=== PATIENT | male | born 1930 | race Caucasian/White ===

== ENCOUNTER 2016-06-02 01:39 | Inpatient (IN) | payer MEDICARE, OTHER ==
[2016-06-02] VITALS (10 sets, daily range): BP systolic 116–163; BP diastolic 63–76; PULSE 59–93; RESP 16–20; O2SAT 95–98
[~2016-06-02] VITALS: Ht 172.7 cm; Wt 85.4 kg
--- NOTE | 2016-06-02 01:42 | ED.REPORT ---
HPI-Chest Pain 40 and Over Date of Service Jun 02, 2016 ED Provider: Dr. Cramer 85-year-old male history of coronary disease and hypertension presents with accelerated anginal symptoms. He has had steadily increasing need for nitroglycerin over the past few weeks. Tonight as he was getting ready for bed he developed the pain in his chest for which he took nitroglycerin. This resolved the pain. The pain then returned a couple more times and has taken a total of 3 doses of nitroglycerin get him pain-free. EMS was activated and he presents to us completely pain-free at this time. He has a history of coronary artery disease and stents. He also has history of a chronic left bundle branch block. He denies having any ripping or tearing pain. He is currently on Plavix and warfarin as well as other cardiac medications. Nursing Notes Stated Complaint: CHEST PAIN Nursing Notes Reviewed: Yes Allergies: Coded Allergies: Penicillins (Verified Allergy, Unknown, 06/02/16) erythromycin base (Verified Allergy, Unknown, 06/02/16) fluorouracil (Verified Allergy, Unknown, 06/02/16) Scheduled Alfuzosin ER (Alfuzosin ER) 10 Mg Tab.er.24h 10 MG PO DAILY Allopurinol (Allopurinol) 300 Mg Tablet 300 MG PO DAILY Clopidogrel Bisulfate (Plavix) 75 Mg Tablet 37.5 MG PO DAILY Finasteride (Finasteride) 5 Mg Tablet 5 MG PO DAILY Isosorbide Dinitrate (Isordil Titradose) 5 Mg Tablet 10 MG PO BID Lisinopril (Lisinopril) 5 Mg Tablet 5 MG PO DAILY Metoprolol Tartrate (Metoprolol Tartrate) 25 Mg Tablet 25 MG PO BID Multivitamin/Iron/Folic Acid (Daily Vit Formula + Iron Tab) 18 Mg Iron-400 Mcg Tablet 1 EACH PO DAILY Dallas-3 Fatty Acids/Fish Oil ([place] 3 1,000 mg Softgel) 1 Each Capsule 1 EACH PO DAILY Ranitidine (Zantac) 150 Mg Tablet 150 MG PO DAILY Simvastatin (Zocor) 40 Mg Tablet 40 MG PO HS Triamcinolone Acet (Triamcinolone Acetonide Cream) 4 Applic/Gm Cr 1 APPLIC TOP BID Scheduled PRN Acetaminophen (Acetaminophen) 325 Mg Tablet 500 MG PO Q4H PRN PRN For Pain Hydrocodone-Acetaminophen 5-300 mg (Hydrocodone-Acetaminophen 5-300 mg) 1 Each Tablet 1 TABLET PO Q4H PRN PRN For Pain Nitroglycerin (Nitroglycerin) 0.3 Mg Tab.subl 0.4 MG SL PRN For Chest Pain Miscellaneous Medications Warfarin Sodium (Warfarin Sodium) 2.5 Mg Tablet 2.5 MG PO Warfarin Sodium (Warfarin Sodium) 5 Mg Tablet 5 MG PO General Time Seen by MD: 01:41 Chief Complaint Chest pain Hx Obtained From: Patient, EMS Arrived By: Ambulance Sudden in Onset?: Yes Onset Occurred: 1 - 4 hours ago Symptom Duration: Since onset Location: : Chest left: Chest right Quality: Painful Severity: Current: No pain currently Severity: Maximum: Moderate Relieved by: Nitroglycerin at home x 1, Nitroglycerin at home x 2, Nitroglycerin at home x 3 Past Medical History Past Medical History CAD Hypertension Past Surgical History CABG Total left knee Smoking History Unknown if Ever Smoker Ambulatory Status Independent Review of Systems Constitutional: Denies: Chills, Fever Respiratory: Denies: Non-productive cough, Shortness of breath Cardiovascular: Reports: Chest pain, Denies: Palpitations, Syncope GI: Denies: Abdominal pain, Diarrhea, Nausea, Vomiting Skin: Denies Bruising, Denies Itching, Denies Rash Complete sys rev & neg: except as marked. Physical Exam Initial Vital Signs Vital Signs (First) Date Time Temp Pulse Resp B/P Pulse Ox O2 Delivery O2 Flow Rate FiO2 06/02/16 01:58 36.7 93 18 141/74 95 Room Air Initial VS: Reviewed Head / Eyes: Atraumatic, Normocephalic, PERRL ENT: Mucous membranes moist, Conjunctiva normal, No scleral icterus Neck: Supple, Full range of motion Extremities: Vascular intact, Neuro intact, No swelling, No tenderness Skin: Warm, Dry, No cyanosis Neurologic: Alert, Oriented, Nonfocal Psychiatric: Mood/affect normal, Behavior normal, Normal thought content General/Constitutional: Awake, Alert, No acute distress, Well appearing, Cooperative, Not toxic appearing Respiratory / Chest: Atraumatic, Breath sounds NL, Breath sounds = bilat, No respiratory distress, No rales, No rhonchi, No wheezing, No retractions, No stridor, No chest tenderness, No chest wall deformity, No crepitus Cardiovascular: Heart rate NL, Regular rhythm, Heart sounds NL, No gallop, No murmurs, No rubs, Cap refill not delayed, Peripheral circulation NL Abdomen: Atraumatic, Soft, Non-tender, No guarding, No rebound, No distention, No palpable mass Interpretation & Diagnostics Lab Results Interpretation Result Diagram: 06/02/16 0900 06/02/16 0205 Test 06/02/16 02:05 Sodium Level 141mEq/L (134-144) Potassium Level 4.8mEq/L (3.5-5.2) Chloride Level 106mEq/L (97-108) Carbon Dioxide Level 18mmol/L (18-29) Blood Urea Nitrogen 38mg/dL (8-27) Creatinine 1.73mg/dL (0.76-1.27) Estimat Glomerular Filtration Rate 40mL/min (>59) Glucose Level 157mg/dL (60-99) Calcium Level 8.8mg/dL (8.5-10.1) Total Bilirubin 0.2mg/dL (0.0-1.2) Aspartate Amino Transf (AST/SGOT) 22U/L (0-50) Alanine Aminotransferase (ALT/SGPT) 10U/L (0-44) Alkaline Phosphatase 51U/L (25-160) Total Protein 6.8g/dL (6.4-8.4) Albumin 3.6g/dL (3.4-5.0) Hold Thomas Top Tube Received (Received) ECG Interpretation ECG Interpretation: Sinus rhythm rate 92 APCs LBBB Time: 02:01 Interpreted by: ED physician Normal ECG Interpretation: No acute ischemic changes, No change from prior ECGs X-Ray Chest Interpretation View: Portable, 1 view Interpretation / Wet Read by: Wet read ED physician NL X-Ray Chest Findings: No infiltrate, No acute disease Re-Eval/Medical Decision Med Decision/Clinical Course 85-year-old with coronary disease presents with non-STEMI. His anginal symptoms been stuttering over the past week or so. He presented pain-free. EKG shows a left bundle which is known to be chronic. Certainly no voltage criteria for ST elevation PA. His first troponin is elevated. He will be treated with aspirin and nitrates and beta chari. He is already on warfarin so we withheld heparin. Admit to PCU. Time of Eval: 02:58 Re-Evaluation/Progress Note: Pt rechecked. Informed pt of need for admission for NSTEMI. Pt understands and agrees with plan for admission. All questions addressed. Counseled Regarding: Diagnosis, Lab results, Need for admission Discharge & Departure Primary Impression: NSTEMI (non-ST elevated myocardial infarction) Additional Impression: Renal insufficiency Disposition: ADMITTED TO HOSPITAL Discharge Condition All VS Reviewed: Yes Condition: Stable Referrals: Bayron Kelly MD (PCP) Scribe Attestation Portions of this note were transcribed by Hugh Hawkins. Dr. Bela Hernandez personally performed the history, physical exam and medical decision-making; I reviewed and confirmed the accuracy of the information in the transcribed note. Signed by Billy Phelan, 06/02/16199 copies to: Bayron Kelly MD, Todd P DO Jun 02, 2016 01:42 HUGH HAWKINS Jun 02, 2016 02:01 Primary Impression: NSTEMI (non-ST elevated myocardial infarction) Additional Impression: Renal insufficiency Disposition: ADMITTED TO HOSPITAL Discharge Condition All VS Reviewed: Yes Condition: Stable Referrals: Bayron Kelly MD (PCP) Scribe Attestation Portions of this note were transcribed by Hugh Hawkins. Dr. Bela Hernandez personally performed the history, physical exam and medical decision-making; I reviewed and confirmed the accuracy of the information in the transcribed note. Signed by Billy Phelan, 06/02/16199 copies to: Bayron Kelly MD, Todd P DO Jun 02, 2016 01:42 HUGH HAWKINS Jun 02, 2016 02:01
[2016-06-02] MEDS ORDERED: MeTOProlol 1 mg/mL 5 mL Inj IVPUSH SCH (02:00)
[2016-06-02] MEDS ORDERED: Nitroglycerin 2% 1 Gm Ointment TOPICAL ONE (02:00)
[2016-06-02 02:12] LABS: BASOPHILS % (AUTO) 0.2 % (0-3); EOSINOPHILS % (AUTO) 0.2 % (0-5); Mean Corpuscular Hemoglobin 31.4 pg (27.0-35.0); Mean Corpuscular Volume 98.5 fL (81-100); NEUTROPHILS % (AUTO) 80.4 % (40-74); Platelet Count 148 bil/L (150-400)
[2016-06-02 02:50] LABS: Magnesium 1.7 mg/dL (1.6-2.6); TROPONIN T 0.037 ug/L (0.0-0.011)
[2016-06-02 03:05] LABS: INR 2.05 ratio
[2016-06-02] MEDS ORDERED: Polyethylene Glycol (PEG) 17 Gm Powder PO PRN (04:45)
[2016-06-02] MEDS ORDERED: Senna-Docusate 8.6-50 mg Tablet PO PRN (04:45)
[2016-06-02] MEDS ORDERED: Alum-Mag Hydrox-Simeth 30 mL Suspension PO PRN (04:45)
[2016-06-02] MEDS ORDERED: Ondansetron 2 mg/mL 2 mL Inj IVPUSH PRN (04:45)
--- NOTE | 2016-06-02 05:08 | PCM.HPMED ---
Subjective Date of Service Jun 02, 2016 Primary Provider: Admitting Physician: Gemma Lyn DO Primary Care Physician: Bayron Kelly MD Attending Physician: Gemma Lyn DO Admit Status: From the Emergency Department, [facility] Telemetry Chief Complaint: Chest pain History of Present Illness: The patient is an 85-year-old man with significant history of coronary artery disease and hypertension who presents to the ED via EMS with accelerated anginal symptoms onset prior to arrival. He has had steadily increasing need for nitroglycerin over the past few weeks, but the chest pain typically resolved after one nitro. Patient claims that the chest pain always occurs before bed time and has the same characteristic of "like a heavy weight on my chest." Tonight as he was getting ready for bed he developed a sharp substernal pain for which he took a nitroglycerin. This resolved the pain. However, the chest pain then returned a couple more times and has taken a total of 3 doses of nitroglycerin. EMS was activated and by the time he arrived to the ED, he was completely pain-free. The patient denies any radiation of the chest pain, or any other associated symptoms, including SOB, palpitations, headache, nausea , vomiting, abdominal pain, cough, fever, or chills. Patient had a CABG in 1988 then 5 subsequent stent placements. The last episode of significant chest pain was in 01/2016, when he went to [facility] and was observed for 2 days. No angiography or stent placement at that time. After the hospital stay, he subsequently underwent a chemical stress test that was normal. Patient also has history of a chronic left bundle branch block. He denies history of afib or CHF. He does not recall having a Echo done in the past. He is currently on Plavix and warfarin as well as other cardiac medications. In the ED, patient vital signs were normal. Labs were significant for elevated Trop of 0/037 and renal function with BUN38, Cr 1.73. Therapeutic INR 2.05. CXR was normal. EKG revealed sinus rhythm at rate 92 and LBBB. There is no change from prior EKGs. Patient is admitted for NSTEMI. Review of Systems: A comprehensive review of systems was conducted with the patient and found to be negative except as above in the History of Present Illness. Allergies Coded Allergies: Penicillins (Verified Allergy, Unknown, 06/02/16) erythromycin base (Verified Allergy, Unknown, 06/02/16) fluorouracil (Verified Allergy, Unknown, 06/02/16) Home Medications To be reviewed by nursing. PMH CAD Hypertension Hyperlipidemia Surgical History CABG Total left knee Cholecystectomy Back surgery Family History Patient denied family history of heart disease. Both of his parents at old age. Social History Hx Alcohol Use: No (occasionally drinks a glass of wine) Hx Substance Use: No Smoking Status: Former Smoker (quit smoking in 1967) Living Arrangement: with Family Additional Information Patient is independent at baseline. PCP is Dr. Bayron Kelly and paid search marketing analyst is Dr. Jordan Roldan. Exam Vital Signs Vital Sign - Last Date Time Temp Pulse Resp B/P Pulse Ox O2 Delivery O2 Flow Rate FiO2 06/02/16 04:34 36.6 78 18 133/76 95 Room Air Exam General: No acute distress, well-developed, well-nourished, appropriately interactive HEENT: Normocephalic, atraumatic. External ears without defect. Pupils equal, round, and reactive to light and accommodation. Anicteric sclerae, moist conjunctivae, and no lid lag. Oropharynx free of erythema and cobble stoning with moist mucosa. Neck: Supple with full range of motion. No jugular venous distension. No lymphadenopathy or thyromegaly. Cardiovascular: Regular rate and rhythm with no murmurs, rubs, or gallops appreciated Pulmonary: Clear to auscultation bilaterally with no crackles, wheezes, or rhonchi. Normal respiratory effort with no use of accessory muscles. Abdomen: Bowel tones present. Soft, nontender, nondistended. No hepatosplenomegaly or masses appreciated. Extremities: No clubbing, cyanosis, edema, or lymphadenopathy appreciated. Skin: Normal temperature, turgor, and texture; no rash, ulcers, or subcutaneous nodules appreciated. Neurological: Cranial nerves grossly intact. Normal muscle strength, tone, and bulk. Reflexes, coordination, and sensory function within normal limits. No known gait impairment. Lymphatic: no cervical or supraclavicular lymphadenopathy Psychiatric: Normal mood and affect. Alert and oriented to person, place, and time. Lab and Diagnostics Result Diagram: 06/02/1620406/02/16 020 X-Rays, CTs and MRIs No acute process. Radiology read pending. 12-lead ECG Sinus rhythm rate 92 APCs LBBB Assessment & Plan 85-year-old man with significant history of coronary artery disease and hypertension who presents to the ED via EMS with accelerated anginal symptoms onset prior to arrival and is admitted for NSTEMI. 1. NSTEMI, present on admission, active. - EKG revealed normal sinus rhythm with LBBB, which is old. - Elevated troponin in the setting of chronic kidney disease. - However, in light of the patient's significant cardiac history and clinical presentation, he likely had a NSTEMI. GRACE risk score of 5. - Continue outpatient dual antiplatelet therapy with ASA 81mg and Plavix. - INR therapeutic. Will continue Warfarin dosing per pharmacy and monitor INR daily. - Continue statin. - He received nitro paste and Metoprolol in the ED. Will need to review his medication list and will make sure that he is on beta chari and ACEi. - No prior Echo. Will order Echocardiogram in the morning. If abnormal or if patient becomes symptomatic again, will consider angiography. - Trend Trop and CK-MB. Check Lipid panel. HgbA1c pending - Nitro, Morphine, and O2 PRN - Monitor Telemetry. - Cardiology consult, am team to contact, recs appreciated 2. Chronic kidney disease, stable. - Elevated renal function unchanged compared to labs in 2013. - Continue to monitor BMP daily. 3. Chronic normocytic anemia, stable. - H/H similar to labs in 2013. - Continue to monitor CBC. 4. Hypertension, chronic, stable. - Resume home medication after med rec. 5. Hyperlipidemia, chronic, presume stable. - Check lipid panel. - Continue statin MED REC: need to be done by the day team. CODE STATUS: FULL CODE per the patient and his family. Patient is admitted under inpatient status with expected length of stay greater than 2 midnights due to severity of presenting symptoms, risk of adverse event, and complexity of treatment plan. Pain Evaluation: Adequate Pain Control GI Prophylaxis: H2 chari VTE Prophylaxis: Theraputic Anticoag with Warfarin Resuscitation Status: CPR: Attempt Resuscitation Attending Statement The patient was seen and examined together with house staff on 06/02/2016 and I agree with the history, exam and plan as outlined in the note above. copies to: Bayron Kelly MD; Jordan Roldan MD, Ngochanh H DO Jun 02, 2016 05:08 Gemma Lyn DO Jun 02, 2016 06:59
--- NOTE | 2016-06-02 06:35 | DRSVH ---
PROCEDURE: X-RAY CHEST ONE VIEW, PORTABLE ([id number]) INDICATIONS: 85-year-old male with chest pain. TECHNIQUE: One view of the chest was acquired. COMPARISON: [facility], CHEST 2 VIEW, 03/05/2016, 14:12. [facility], CHEST 1 VIEW, 11/21/2015, 10:02. [facility], CHEST 1 VIEW, 12/18/2013, 5:27. FINDINGS: Surgical changes and devices: Patient is status post coronary artery bypass grafting. Lungs and pleura: No pleural effusions or pneumothorax. Lungs are clear. Mediastinum: Mediastinal contours appear normal. Heart size is normal. There is aortic atheroscler osis. Bones and chest wall: No suspicious bony lesions. Overlying soft tissues appear unremarkable. IMPRESSION: No acute cardiopulmonary disease. Dictated by: Anthony Cerda M.D. on 06/02/2016 at 6:34 Approved by: Anthnoy Cerda M.D. on 06/02/2016 at 6:34
--- NOTE | 2016-06-02 07:07 | NUR ---
Admission Pt arrived via gurney with Hugh Fontenot RN. Pt able to ambulate to the bathroom and was steady on his feet. Denies chest pain and shortness of breath. Oriented to room, call light, television, bed controls, and lights. SCDs in place and wearing non skid socks for safety. MP 30 for cardiac monitoring SR HR [address] monitor[address] care ongoing.
[2016-06-02] MEDS: Sodium Chloride LOK Flush 10 mL Syringe IVFLUSH SCH ×2 (09:00→16:22)
[2016-06-02 09:17] LABS: BASOPHILS % (AUTO) 0.1 % (0-3); EOSINOPHILS % (AUTO) 0 % (0-5); MONOCYTES % (AUTO) 5.3 % (4-12); Mean Corpuscular Hemoglobin 31.3 pg (27.0-35.0); Mean Corpuscular Volume 98.5 fL (81-100); NEUTROPHILS % (AUTO) 79.3 % (40-74); Platelet Count 143 bil/L (150-400)
[2016-06-02 09:34] LABS: INR 2.03 ratio
[2016-06-02] MEDS ORDERED: [UNRECOGNIZED DRUG - CODE] PO (10:09)
[2016-06-02] MEDS ORDERED: LISI-571 PO (10:25)
[2016-06-02] MEDS ORDERED: ISOS5TAB17 PO (10:25)
[2016-06-02] MEDS ORDERED: RANI150T11 PO (10:25)
[2016-06-02] MEDS ORDERED: OMEG1CAP56 PO (10:25)
[2016-06-02] MEDS ORDERED: FINA5TAB9 PO (10:25)
[2016-06-02] MEDS ORDERED: ALFU10TA11 PO (10:25)
[2016-06-02] MEDS ORDERED: CLOP75TA3 PO (10:25)
[2016-06-02] MEDS ORDERED: WARF2.5T82 PO (10:25)
[2016-06-02] MEDS ORDERED: ACET325T51 PO (10:25)
[2016-06-02] MEDS ORDERED: METO25TA6 PO (10:25)
[2016-06-02] MEDS ORDERED: TR5C15 TOP (10:25)
[2016-06-02] MEDS ORDERED: WARF5TAB7 PO (10:25)
[2016-06-02] MEDS ORDERED: ALLO300T2 PO (10:25)
[2016-06-02] MEDS ORDERED: SIMV40TA2 PO (10:25)
[2016-06-02] MEDS ORDERED: HYDR-3090 PO (10:25)
[2016-06-02] MEDS ORDERED: NITR0.3T6 SL (10:25)
[2016-06-02 10:26] LABS: Magnesium 1.9 mg/dL (1.6-2.6)
[2016-06-02 10:32] LABS: TROPONIN T 0.073 ug/L (0.0-0.011)
[2016-06-02] MEDS ORDERED: Alfuzosin 10 mg ER24 Tablet PO SCH (11:15)
[2016-06-02] MEDS ORDERED: HYDROcodone-APAP 5-325 mg Tablet PO PRN (11:20)
[2016-06-02 12:57] LABS: TROPONIN T 0.067 ug/L (0.0-0.011)
[2016-06-02] MEDS: Multivit-Miner-Folic Acid-Iron Tablet PO SCH (13:07)
--- NOTE | 2016-06-02 14:57 | DRSVH ---
[facility] [address] [place] [address] Echocardiogram Report Name: SAE COUCH Study Date: 06/02/2016Height: 68 in Hospital Exam Location: [facility] Weight: 185 lb Gender: Male BSA: 2.0 m2 : 1930 Age: 85 yrs BP: 137/66 mmHg Reason For Study: CHEST PAIN Ordering Physician: HOSPITALIST [facility] Performed By: Hugo Costello Referring Physician: Dr. Bayron Kelly Interpretation Summary 1. Normal left ventricular size with mildly increased wall thickness and normal systolic function with an estimated EF of 55% 2. Normal right ventricular size and systolic function. 3. Evidence for moderate aortic stenosis with trace insufficiency. 4. Moderate mitral regurgitation into a dilated left atrium Procedure: A two-dimensional transthoracic echocardiogram with color flow and Doppler was performed. The study quality was technically adequate. The patient was in normal sinus rhythm during the exam. Left Ventricle: The left ventricle is normal in size. Left ventricular wall thickness is mildly increased. Trabeculae near apex are visualized. No thrombus is observed. Left ventricular ejection fraction is estimated to be 55%. Septal motion is consistent with conduction abnormality. There is left ventricular diastolic dysfunction. Right Ventricle: The right ventricle is normal in size and function. Atria: The left atrium is severely dilated. Right atrial size is normal. The interatrial septum is intact with no evidence for an atrial septal defect. Mitral Valve: There is mild mitral annular calcification. The mitral valve leaflets are slightly calcified. There is moderate mitral regurgitation. Aortic Valve: The aortic valve is trileaflet. The aortic valve is moderately calcified. The peak aortic velocity is 3.04 m/sec. The aortic valve mean gradient is 23.7 mmHg. The calculated aortic valve area is 1.2 cm2. There is moderate aortic stenosis. There is trace aortic regurgitation. Tricuspid Valve: The tricuspid valve leaflets are thin and pliable. There is trace tricuspid regurgitation. The right ventricular systolic pressure is estimated at 33 mmHg assuming a right atrial pressure of 3 mm Hg. Pulmonic Valve: The pulmonic valve is normal in structure and function. There is trace pulmonic regurgitation. Great Vessels: The aortic root is normal size. The ascending aorta is mildly enlarged. The ascending aorta measures 3.9 cm. The pulmonary artery is normal size. The IVC is of normal diameter and collapses greater than 50% with a sniff. This suggests a low right atrial pressure of 3 mm Hg. Pericardium/ Pleura There is no pericardial effusion. There is no pleural effusion. MMode/2D Measurements & Calculations LVIDd: 5.0 cmLA dimension: 4.2 cm RA long axis: 4.7 cm LVOT diam: 2.3 cm LVIDs: 3.4 cm Ao root diam FS: 31.4 % LA A2 area: 30.2 cm RA area: 17.2 cm EPSS: 0.53 cmLA A4 area: 20.7 cm RA vol: 53.1 ml Aortic Jxn: 2.8 cm IVSd: 1.3 cm LA length (vol) RA : 26.9 ml/m2 asc Aorta Diam LVPWd: 1.1 cm LA vol: 97.1 ml Ao Arch Diam (Prox LA vol index Trans): 2.8 cm IVC diam: 2.0 cm EDV(MOD-sp2) LV liz. diameter/BSA LV sys. diameter/BSA (cm/m^2): 2.5 (cm/m^2): 1.7 Doppler Measurements & Calculations Ao V2 max MV E max bret MV E/A: 0.80 TR max bret : 304.0 cm/sec : 97.7 cm/sec Med Peak E' Bret : 273.6 cm/sec Ao max PG MV A max bret TR max PG : 37.0 mmHg : 121.7 cm/sec E/E' med: 31.6 : 29.9 mmHg Ao mean PG Pulm A Revs Dur PA V2 max : 23.7 mmHg MVA(VTI): 3.2 cm2 : 112.4 cm/sec LVOT Max Bret MV A dur: 0.14 sec PA mean PG : 98.9 cm/sec PA Accel Time ANGELES(I,D): 1.2 cm : 0.08 sec sev ratio MV V2 mean Ao V2 mean LV V1 max PG MR PISA radius : 79.1 cm/sec : 237.2 cm/sec MV mean PG Ao V2 VTI: 71.9 cm LV V1 VTI: 22.0 cm ANGELES(V,D): 1.3 cm2 MV V2 VTI MV dec time : 0.20 sec PA V2 mean ANGELES indexed to BSA Pulm A Revs Dur - MV : 80.0 cm/sec (cm^2/m^2): 0.62 A Dur: -0.06 msec PA pr(Accel) : 41.6 mmHg Reading Physician:02:57 PM
--- NOTE | 2016-06-02 15:26 | NUR ---
Social Work-initial assessment: Data & Assessment: See initial assessment. EMR Reviewed. Pt is a 85 y/o male who was admitted on 06/02/16 for non STEMI per H&P. Pt's insurance is [employer] and PCP is Bayron Kelly MD. Pt's readmission score is 1- no risk. SW met with pt to discuss discharge planning, SW role explained and initial assessment complete. Pt is alert and oriented x3. Pt resides at home with family in a single level home with three steps to enter where pt remains independent with basic ADLs. Pt does drive. Pt has no HH or SNF history. Pt has completed DPOA/ advanced directive and states that his , Hortencia Parisi [phone], is his DPOA. Patient has no discharge needs identified at this time. Pt's family to provide transport home at discharge. SW provided phone number and plan on white board in room. SW will continue to follow. Plan: Anticipated discharge home via POV when medically ready. No discharge needs identified at this time. SW to continue to follow if any needs arise. Kasandra Hernadez LMSW, JB Addendum: 06/02/16 at 1537 by KASANDRA HERNADEZ Amended: Links added.
[2016-06-02 18:05] LABS: APPEARANCE,URINE CLEAR (CLEAR,HAZY); COLOR,URINE YELLOW (YELLOW); OCCULT BLOOD,URINE TRACE (NEGATIVE); UROBILINOGEN,URINE NORMAL (NORMAL)
[2016-06-03] VITALS (16 sets, daily range): BP systolic 113–176; BP diastolic 44–105; PULSE 51–96; RESP 15–20; O2SAT 95–98
[2016-06-03] MEDS: Sodium Chloride LOK Flush 10 mL Syringe IVFLUSH SCH ×4 (00:14→23:47)
--- NOTE | 2016-06-03 04:19 | NUR ---
Cardiac: Telemetry sinus rhythm, IVCD with PAC's. Denies chest pain. VSS. No overt signs or symptoms of distress. pt. resting quietly in room for large majority of shift. Uneventful night.
[2016-06-03 08:56] LABS: INR 1.87 ratio
[2016-06-03] MEDS: Multivit-Miner-Folic Acid-Iron Tablet PO SCH (09:10)
--- NOTE | 2016-06-03 10:45 | PCM.PNMED ---
Subjective Date of Service Jun 03, 2016 Subjective No chest pain since admit. No nauseam diaphoresis or dyspnea. No orthopnea or edema. Exam Vital Signs Vital Sign - Last Date Time Temp Pulse Resp B/P Pulse Ox O2 Delivery O2 Flow Rate FiO2 06/03/16 08:32 65 06/03/16 07:53 36.5 18 126/44 96 Room Air Intake and Output 06/02/16 06/02/16 06/03/16 Cumulative From/Thru 15:00 23:00 07:00 06/02/16 01:58 - 06/03/16 06:42 Intake Total 1280 ml 200 ml 1480 ml Output Total 1025 ml 1025 ml Balance 255 ml 200 ml 455 ml Intake Oral 1280 ml 200 ml 1480 ml Output Urine Total 1025 ml 1025 ml # Voids 3 3 # Bowel Movements 1 1 Exam Alert and oriented, fluent speech Anicteric sclera Lungs clear with normal effort heart regular without murmur Abdomen soft and ND No edema. IVs and Medications Medications Reviewed: Medications were reviewed in detail Lab and Diagnostics Result Diagram: 06/02/16 0900 06/02/16 0205 X-Rays, CTs and MRIs No acute process. Radiology read pending. 12-lead ECG Sinus rhythm rate 92 APCs LBBB Assessment & Plan 85-year-old man with significant history of coronary artery disease and hypertension who presents to the ED via EMS with accelerated anginal symptoms onset prior to arrival and is admitted for NSTEMI. 1. NSTEMI, present on admission, active. - EKG revealed normal sinus rhythm with LBBB, which is old. - Elevated troponin in the setting of chronic kidney disease. - However, in light of the patient's significant cardiac history and clinical presentation, he likely had a NSTEMI. GRACE risk score of 5. - Continue outpatient dual antiplatelet therapy with ASA 81mg and Plavix. - INR therapeutic. Will continue Warfarin dosing per pharmacy and monitor INR daily. - Continue statin. - He received nitro paste and Metoprolol in the ED. Will need to review his medication list and will make sure that he is on beta chari and ACEi. - No prior Echo. Will order Echocardiogram in the morning. If abnormal or if patient becomes symptomatic again, will consider angiography. - Trend Trop and CK-MB. Check Lipid panel. HgbA1c pending - Nitro, Morphine, and O2 PRN - Monitor Telemetry. - Cardiology consulted, old records from [facility] requested. Will probably obtain a stress test. 2. Chronic kidney disease Stage 3, stable. - Elevated renal function unchanged compared to labs in 2013. - Continue to monitor BMP daily. 3. Chronic normocytic anemia, stable. - H/H similar to labs in 2013. - Continue to monitor CBC. 4. Hypertension, chronic, stable. - Resume home medication after med rec. 5. Hyperlipidemia, chronic, presume stable. - Check lipid panel. - Continue statin MED REC: need to be done by the day team. CODE STATUS: FULL CODE per the patient and his family. Patient is admitted under inpatient status with expected length of stay greater than 2 midnights due to severity of presenting symptoms, risk of adverse event, and complexity of treatment plan. Pain Evaluation: Adequate Pain Control GI Prophylaxis: H2 chari VTE Prophylaxis: Theraputic Anticoag with Warfarin VTE Mechanical Devices: Intermittant Pneumatic CD Resuscitation Status: CPR: Attempt Resuscitation Time spent 30 min Stephon Lima MD Jun 03, 2016 10:45
--- NOTE | 2016-06-03 14:10 | PCM.PHAPRO ---
Progress Date of Service: Jun 03, 2016 Warfarin Home Dose: 5mg Mo,,Th,Sa 2.5mg AOD Anticoagulation Trends: Date -Jun 03-Jun INR 2.05 1.87 INR change -0.18 Warf Dose 5MG 5MG GOAL INR: 2-3 Summary: Patient is slightly subtherapeutic today at 1.87 , give 5mg today. Pharmacy will continue to follow daily. Thank you for consulting pharmacy in the care of this patient. Bayron Epstein Jun 03, 2016 14:10
--- NOTE | 2016-06-03 16:42 | CONS ---
[address] [address] CONSULTATION REPORT PATIENT: SAE COUCH : 1930 MR#: [id number] ADMIT: 06/02/2016 JOB ID: [id number] DATE OF SERVICE: 06/03/2016 CHIEF COMPLAINT: I was asked by the hospital team to consult on this patient given coronary disease and episode of chest pain and elevated troponins. HISTORY OF PRESENT ILLNESS: The patient is an 85-year-old man with past medical history significant for coronary disease with a history of bypass surgery in 1988. He said he has had stent placement subsequent to that, most recent about two years ago. He is followed by Dr. Jordan Roldan [facility], who has an office in [place], and at [facility]. The patient says he was also admitted in January 2016, when he went to [facility] and he was observed for two days. He had no angiography, no stent placement. Subsequent to that, he had a stress test which I believe was performed at Dr. Jordan Roldan's office that was normal. In general, he says he was recently started on a new medication which I presume is isosorbide. He has been using on average one nitro at least once a week, but with this episode of chest discomfort, he ended up using three. He said the pain was mid sternal, pressure-like, relieved with three nitros. Since she has been here, he has not had any more episodes of chest discomfort. 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 The chest discomfort that he had that brought him here occurred at rest. He cannot find if it got worse with exertion, deep inspiration. It was not associated with increased shortness of breath, diaphoresis, nausea, or vomiting. He does get up and walk around, even at the hospital now and he is not having any chest pressure, chest tightness, or shortness of breath. He denies orthopnea, PND, lower extremity edema, presyncope, syncope. PAST MEDICAL HISTORY/PROBLEM LIST: 1. History of coronary disease. 2. History of hypertension, hyperlipidemia. CURRENT MEDICATIONS: Include: 1. Isosorbide dinitrate 10 mg b.i.d. 2. Lisinopril 5 daily. 3. Plavix 37.5 daily. 4. Metoprolol tartrate 25 b.i.d. 5. Allopurinol. 6. Finasteride. 7. Tamsulosin. 8. Lipitor 20 q.h.s. 9. Aspirin 81 mg a day. 10. He is also on warfarin. ALLERGIES: 1. PENICILLIN. 2. ERYTHROMYCIN. 3. FLUOROURACIL. SOCIAL HISTORY: Former tobacco. No significant alcohol. FAMILY HISTORY: No early coronary disease. REVIEW OF SYSTEMS: Overall health: No fevers, chills, night sweats, or weight loss. GI: no problems with ulcers or blood in his stool. : No dysuria, no hematuria. His creatinine is somewhat up. This may be a chronic problem. Endocrine: No heat or cold intolerance. Musculoskeletal: Has chronic ankle pain, no worsening. Heme: No easy bruising or bleeding. Neuro: No chronic headaches. Derm: No rashes or skin breakdown. He had a recent removal of a skin cancer in the right hassan area. Pulmonary: No history of lung disease. No increased shortness of breath. ENT: No sore throat, difficulty swallowing. Ophtho: No acute vision changes. Psych: No acute issues. PHYSICAL EXAMINATION: Blood pressure 126/44, heart rate 57, sats are 96% on room air. General: In no acute distress. Speaking in full sentences without apparent shortness of breath. Head and neck exam: Normocephalic, atraumatic. Neck: I do not appreciate obvious JV distention. Carotids without obvious bruits appreciated. Heart exam is regular rate and rhythm with systolic murmur appreciated in the sternal border. Lungs sound clear to auscultation. Abdomen: Soft, nondistended. Back: No CVA tenderness to palpation. Extremities: Warm, 1 to 2+ PT pulses appreciated. His right hassan area has a bandage of his prior cancer excision site. Looks clean, dry and intact. Gait not tested. Psych: Appropriate mood and affect. ENT: Mucous membranes moist. No erythema. Ophtho: Vision grossly intact. EKG shows left bundle branch block with occasional PAC. LABORATORIES: Show white count 7.4, H and H 10.2, 32.1 platelets 143,000. Is stable. Troponins have trended upward, now at 0.110 from 0.073 and 0.067. Sodium 141, potassium 4.8, chloride and bicarb 106 and 18, respectively. BUN and creatinine 38 and 1.73. HDL cholesterol 46, LDL 82.2. An echocardiogram performed yesterday showed overall preserved LV systolic function. In one view, the distal posterolateral wall appears mildly hypokinetic, although I cannot see this in the short axis views. A previous echo described possible inferior or inferolateral hypokinesis as well. IMPRESSION: The patient came in with an episode of chest discomfort which sounds like typical angina relieved with three nitroglycerins. Now he has none at this time. He has been getting up and walking to the restroom without chest pain or chest pressure or increased shortness of breath. The troponins are suggestive of a non-STEMI. Unfortunately, I do not have any of his records to see which grafts are patent with where stents have been placed in this gentleman. We tried to get a stress test on him today which was Lexiscan. However, this was not done because he is now on isosorbide. I explained to him that a stress test might be helpful to risk stratify and determine if we need to do angiography. I also explained to him that because his creatinine is somewhat elevated, this would be a concern to do angiography without having previous information about bypasses and stents. 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 55 minutes was spent reviewing the patient's records and echo, speaking with an examining the patient and communicating with the hospital team SAAD
--- NOTE | 2016-06-03 19:44 | NUR ---
Chest pain at about 1900 pt report 9/10 chest pain, o2 applied for comfort. ra sat @ 95. 2L o2 applied sating mid 90s throughout chest pain. EKG obtained. Nitro SL given, with progressive lightening of chest pain. second nitro given with continued relieve of pain. Pt stated chest resolved to about 0.5-1/10 about 5 minutes after 2nd nitro. Pt noted heaviness of bilateral arms. Trim Die Maker paged by PAUL RN, orders received. Situation endorsed to PAUL RN.
[2016-06-03] MEDS ORDERED: Nitroglycerin 50,000 mcg/250 mL D5W Premix IV ONE (19:48)
[2016-06-03] MEDS ORDERED: Heparin Protocol Boluses IVPUSH PRN (19:55)
[2016-06-03] MEDS: Nitroglycerin 50 mg/250 mL D5W Premix IV SCH (19:56)
--- NOTE | 2016-06-03 20:00 | NUR ---
Chest Pain/IMCU status: Pt. complaining of 9-10/10 chest pain at 1900, pt. hypertensive (see [employer] for BP trend). Pt. placed on oxygen at 2L nasal cannula for comfort. STAT EKG ordered, which indicates ST depression in leads V1 and AVL, and appears that lead V6 flipped axis from prior EKG. Sublingual nitro administered X2 by Eben Downing RN. Pt. states that chest pain has been relieved by sublingual nitro. Dr. Lee notified of findings, orders received to change pt. status to IMCU, start nitro gtt, and also start heparin gtt per cardiac protocol. Physician also gives orders to administer scheduled metoprolol this evening. Pt. to be NPO at midnight for possible test/procedure in a.m. Nitro gtt currently infusing at 5mcg/min. Heparin gtt started per cardiac protocol.
[2016-06-03] MEDS: Heparin 25K Unit/500mL 0.45 NS 25,000 UNIT in IV Premix 1 EACH IV SCH (20:10)
[2016-06-04] VITALS (8 sets, daily range): BP systolic 120–156; BP diastolic 54–77; PULSE 58–78; RESP 16–20; O2SAT 97–100
[2016-06-04 04:44] LABS: INR 2.18 ratio
[2016-06-04] MEDS: Sodium Chloride LOK Flush 10 mL Syringe IVFLUSH SCH ×3 (08:30→23:52)
[2016-06-04 08:52] LABS: Mean Corpuscular Hemoglobin 30.9 pg (27.0-35.0); Mean Corpuscular Volume 98.8 fL (81-100)
--- NOTE | 2016-06-04 09:05 | PCM.PNMED ---
Subjective Date of Service Jun 04, 2016 Subjective No chest pain this AM. Some last night, and was started on heparin and NTG drip. No nausea or vomiting. No constipation. Exam Vital Signs Vital Sign - Last Date Time Temp Pulse Resp B/P Pulse Ox O2 Delivery O2 Flow Rate FiO2 06/04/16 08:50 64 06/04/16 03:13 36.6 16 141/75 Nasal Cannula 1.00 06/03/16 22:53 96 Intake and Output 06/03/16 06/03/16 06/04/16 Cumulative From/Thru 15:00 23:00 07:00 06/02/16 01:58 - 06/04/16 05:49 Intake Total 880 ml 733 ml 3093 ml Output Total 950 ml 1075 ml 3050 ml Balance -70 ml -342 ml 43 ml Intake Oral 880 ml 540 ml 2900 ml IV Total 193 ml 193 ml Output Urine Total 950 ml 1075 ml 3050 ml # Voids 3 # Bowel Movements 1 Exam Alert and oriented, fluent speech Anicteric sclera Lungs clear with normal effort heart regular without murmur Abdomen soft and ND No edema. No skin rash. IVs and Medications Medications Reviewed: Medications were reviewed in detail Lab and Diagnostics Result Diagram: 06/04/16 0750 06/02/16 0205 X-Rays, CTs and MRIs No acute process. Radiology read pending. 12-lead ECG Sinus rhythm rate 92 APCs LBBB Assessment & Plan 85-year-old man with significant history of coronary artery disease and hypertension who presents to the ED via EMS with accelerated anginal symptoms onset prior to arrival and is admitted for NSTEMI. 1. NSTEMI, present on admission, active. We will continue heparin and NTG drip. Consider angiogram tomorrow. Hold coumadin. 2. Chronic kidney disease Stage 3, stable. - Elevated renal function unchanged compared to labs in 2013. - Continue to monitor BMP daily. Pretreat for angiogram. 3. Chronic normocytic anemia, stable. - H/H similar to labs in 2013. - Continue to monitor CBC. 4. Hypertension, chronic, stable. - Resume home medication after med rec. 5. Hyperlipidemia, chronic, presume stable. - Check lipid panel. - Continue statin MED REC: need to be done by the day team. CODE STATUS: FULL CODE per the patient and his family. Patient is admitted under inpatient status with expected length of stay greater than 2 midnights due to severity of presenting symptoms, risk of adverse event, and complexity of treatment plan. Pain Evaluation: Adequate Pain Control GI Prophylaxis: H2 chari VTE Prophylaxis: Theraputic Anticoag with Warfarin VTE Mechanical Devices: Intermittant Pneumatic CD Resuscitation Status: CPR: Attempt Resuscitation Time spent 30 min Stephon Lima MD Jun 04, 2016 09:05
[2016-06-04] MEDS: Multivit-Miner-Folic Acid-Iron Tablet PO SCH (09:24)
--- NOTE | 2016-06-04 10:58 | PCM.PNCARD ---
Subjective Date of service Jun 04, 2016 Chief Complaint NSTEMI History of Present Illness 85 yo M h/o CAD s/p 3V CABG and stent admitted with chest pain consistent with NSTEMI. Subjective: Patient had chest pain with walking to the bathroom yesterday but no recurrence. He feels comfortable today and denies any symptoms. 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 as outpatient Exam Vital Signs Vital Sign - Last Date Time Temp Pulse Resp B/P Pulse Ox O2 Delivery O2 Flow Rate FiO2 06/04/16 09:17 36.8 65 20 156/77 100 Nasal Cannula 06/04/16 03:13 1.00 Intake and Output 06/03/16 06/03/16 06/04/16 Cumulative From/Thru 15:00 23:00 07:00 06/02/16 01:58 - 06/04/16 05:49 Intake Total 880 ml 733 ml 3093 ml Output Total 950 ml 1075 ml 3050 ml Balance -70 ml -342 ml 43 ml Intake Oral 880 ml 540 ml 2900 ml IV Total 193 ml 193 ml Output Urine Total 950 ml 1075 ml 3050 ml # Voids 3 # Bowel Movements 1 General appearance: No apparent distress, frail, pleasant, cooperative HEET: Normocephalic atraumatic, no scleral icterus, tongue midline, mucous membranes moist Neck: supple Cardiovascular: RRR, normal S1 and soft S2, + systolic murmur, PMI nondisplaced , no JVD, no LE edema Respiratory: Good aeration, CTAB Abdomen: Soft, nontender, nondistended, + bowel sounds Neuro: Alert, no facial droop, tongue midline, no gross motor deficits Lab and Diagnostics Labs Troponin: 0.037 -> 0.073 -> 0.110 -> 0.156 Result Diagram: 06/04/16 0750 06/04/16 5559 12-lead ECG ECG on admission: sinus rhythm with LBBB Assessment & Plan Assessment 85 yo M h/o CAD s/p 3V CABG and stent admitted with chest pain consistent with NSTEMI: # NSTEMI with CAD s/p 3v CABG (MESA->LAD, SVG->D1, SVG->RI) in 1986, CORNELL to SVG graft to D1 in 2004 and 2008. Patient's troponin is rising and, therefore, patient is not a good candidate for nuclear stress test at this time. LVEF normal on echo. Given patient's advanced age, CKD, supratherapeutic INR, and bypass grafts, patient is a complex case for angiogram with probable PCI. Patient and want to do what's best for the patient and are willing to be patient with us. Plan: - Continue aspirin 81mg daily - Increase clopidogrel from 37.5mg daily to 75mg daily - Continue heparin gtt. Hold warfarin - Increase atorvastatin from 20mg qhs to 40mg qhs. Patient was on simvastatin 40mg qhs and had LDL of 82 when goal is less than 70. - Continue nitro gtt - Continue metoprolol 25mg bid - Continue lisinopril 5mg daily - Consider coronary angiogram and PCI on separate days once INR < 1.7 # Moderate aortic stenosis: asymptomatic. Monitor clinically and with serial echo q1-2 years as outpatient # CKD: baseline Cr 1.6 and Cr 1.7 in the hospital. Will have to do diagnostic and interventional procedures on separate days # HTN: BP elevated in the morning due to meds given late. Will continue to monitor. # HLD: statin as above # DVT history in 2007 and 2012: hold warfarin Problems: Pain Evaluation: Adequate Pain Control GI Prophylaxis: H2 chari VTE Prophylaxis: Theraputic Anticoag with Warfarin VTE Mechanical Devices: Intermittant Pneumatic CD Resuscitation Status: CPR: Attempt Resuscitation Speedy Leary MD Jun 04, 2016 10:58
--- NOTE | 2016-06-04 17:07 | NUR ---
No C/P pt had no c/o chest pain through the day, Nitro still at 5mcg/min. Ongoing care.
[2016-06-04] MEDS: Nitroglycerin 50 mg/250 mL D5W Premix IV SCH (20:41)
[2016-06-04] MEDS: Heparin 25K Unit/500mL 0.45 NS 25,000 UNIT in IV Premix 1 EACH IV SCH (20:43)
[2016-06-05] VITALS (9 sets, daily range): BP systolic 122–166; BP diastolic 62–74; PULSE 61–84; RESP 12–23; O2SAT 96–98
[2016-06-05 03:25] LABS: INR 2.29 ratio
--- NOTE | 2016-06-05 04:42 | NUR ---
Cardiac: Telemetry sinus rhythm with IVCD throughout shift. Denies chest pain throughout shift. VSS. Nitro gtt infusing at 5mcg/min throughout shift, heparin gtt infusing, titrating per heparin cardiac protocol. NPO past midnight for possible procedure in a.m. No overt signs or symptoms of distress.
[2016-06-05] MEDS: Sodium Chloride LOK Flush 10 mL Syringe IVFLUSH SCH ×3 (08:30→21:55)
[2016-06-05] MEDS: Multivit-Miner-Folic Acid-Iron Tablet PO SCH (09:16)
--- NOTE | 2016-06-05 11:44 | PCM.PNCARD ---
Subjective Date of service Jun 05, 2016 Chief Complaint NSTEMI History of Present Illness 85 yo M h/o CAD s/p 3V CABG and stent admitted with chest pain consistent with NSTEMI. Subjective: No chest pain in the past 36 hours. Patient has not complaints and no questions. 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 as outpatient Exam Vital Signs Vital Sign - Last Date Time Temp Pulse Resp B/P Pulse Ox O2 Delivery O2 Flow Rate FiO2 06/05/16 10:54 61 06/05/16 08:37 36.7 12 166/74 98 Room Air 06/04/16 03:13 1.00 Intake and Output 06/04/16 06/04/16 06/05/16 Cumulative From/Thru 15:00 23:00 07:00 06/02/16 01:58 - 06/05/16 06:47 Intake Total 1229 ml 604 ml 4926 ml Output Total 950 ml 1350 ml 5350 ml Balance 279 ml -746 ml -424 ml Intake Oral 950 ml 400 ml 4250 ml IV Total 279 ml 204 ml 676 ml Output Urine Total 950 ml 1350 ml 5350 ml # Voids 3 # Bowel Movements 1 2 General appearance: No apparent distress, frail, pleasant, cooperative HEET: Normocephalic atraumatic, no scleral icterus, tongue midline, mucous membranes moist Neck: supple Cardiovascular: RRR, normal S1 and soft S2, + systolic murmur, PMI nondisplaced , no JVD, no LE edema Respiratory: Good aeration, CTAB Abdomen: Soft, nontender, nondistended, + bowel sounds Neuro: Alert, no facial droop, tongue midline, no gross motor deficits Lab and Diagnostics Result Diagram: 06/05/16 0230 06/05/16 0948 Assessment & Plan Assessment 85 yo M h/o CAD s/p 3V CABG and stent admitted with chest pain consistent with NSTEMI: # NSTEMI with CAD s/p 3v CABG (MESA->LAD, SVG->D1, SVG->RI) in 1986, CORNELL to SVG graft to D1 in 2004 and 2008. Patient's troponin is rising (0.173) and, therefore, patient is not a good candidate for nuclear stress test at this time. LVEF normal on echo. Given patient's advanced age, CKD, supratherapeutic INR, and bypass grafts, patient is a complex case for angiogram with probable PCI. Patient and want to do what's best for the patient and are willing to be patient with us. Plan: - Continue aspirin 81mg daily - Continue clopidogrel 75mg daily - Continue heparin gtt. Hold warfarin - Continue atorvastatin 40mg qhs. Patient was on simvastatin 40mg qhs and had LDL of 82 when goal is less than 70. - Continue nitro gtt - Continue metoprolol 25mg bid - Continue lisinopril 5mg daily and uptitrate as needed for BP control - Consider coronary angiogram and PCI on separate days once INR < 1.7 # Moderate aortic stenosis: asymptomatic. Monitor clinically and with serial echo q1-2 years as outpatient # CKD: baseline Cr 1.6 and stable in the hospital. Will have to do diagnostic and interventional procedures on separate days # HTN: BP elevated in the AM. If repeat elevated, lisinopril can be increased. Will continue to monitor. # HLD: statin as above # DVT history in 2007 and 2012: hold warfarin Problems: Pain Evaluation: Adequate Pain Control GI Prophylaxis: H2 chari VTE Prophylaxis: Theraputic Anticoag with Warfarin VTE Mechanical Devices: Intermittant Pneumatic CD Resuscitation Status: CPR: Attempt Resuscitation Speedy Leary MD Jun 05, 2016 11:44
[2016-06-05] MEDS ORDERED: Phytonadione (Adult) 10 mg/1 mL Inj PO ONE (11:45)
--- NOTE | 2016-06-05 14:27 | NUR ---
Social Work Note: Readiness for Discharge Data& Assessment: Per MD pt is getting closer to being medically ready for discharge. Pt is awaiting heart cath. SW met with pt and pt at bedside to confirm discharge plan and asses for any unmet needs. Pt transporting pt home and pt hoping to be discharged in the next 1-2 days. Pt is ambulating at baseline. Pt and pt deny any other needs at this time. No other discharge needs identified at this time. SW to continue to follow if any needs arise. Plan: Anticipated discharge home via POV when medically ready. Pt and pt deny any other needs at this time. No other discharge needs identified at this time. SW to continue to follow if any needs arise. SAMMIE Ortiz
--- NOTE | 2016-06-05 16:43 | PCM.PNMED ---
Subjective Date of Service Jun 05, 2016 Subjective No CP or dyspnea. No cough, abdomen pain or dysuria. No other problems Exam Vital Signs Vital Sign - Last Date Time Temp Pulse Resp B/P Pulse Ox O2 Delivery O2 Flow Rate FiO2 06/05/16 12:32 36.6 64 16 132/69 97 Room Air 06/04/16 03:13 1.00 Intake and Output 06/04/16 06/04/16 06/05/16 Cumulative From/Thru 15:00 23:00 07:00 06/02/16 01:58 - 06/05/16 06:47 Intake Total 1229 ml 604 ml 4926 ml Output Total 950 ml 1350 ml 5350 ml Balance 279 ml -746 ml -424 ml Intake Oral 950 ml 400 ml 4250 ml IV Total 279 ml 204 ml 676 ml Output Urine Total 950 ml 1350 ml 5350 ml # Voids 3 # Bowel Movements 1 2 Exam Alert and oriented, fluent speech Anicteric sclera Lungs clear with normal effort heart regular without murmur Abdomen soft and ND No edema. No skin rash. IVs and Medications Medications Reviewed: Medications were reviewed in detail Lab and Diagnostics Result Diagram: 06/05/16 0230 06/05/16 0948 X-Rays, CTs and MRIs No acute process. Radiology read pending. 12-lead ECG Sinus rhythm rate 92 APCs LBBB Assessment & Plan 85-year-old man with significant history of coronary artery disease and hypertension who presents to the ED via EMS with accelerated anginal symptoms onset prior to arrival and is admitted for NSTEMI. 1. NSTEMI, present on admission, active. We will continue heparin and NTG drip. Probable angiogram tomorrow. Hold coumadin. Will partially reverse with Vit K 2.5 times one today 2. Chronic kidney disease Stage 3, stable. - Elevated renal function unchanged compared to labs in 2013. - Continue to monitor BMP daily. Pretreat for angiogram, Wed if INR less than 1.7. 3. Chronic normocytic anemia, stable. - H/H similar to labs in 2013. - Continue to monitor CBC. 4. Hypertension, chronic, stable. - Resume home medication after med rec. 5. Hyperlipidemia, chronic, presume stable. - Check lipid panel. - Continue statin CODE STATUS: FULL CODE per the patient and his family. Patient is admitted under inpatient status with expected length of stay greater than 2 midnights due to severity of presenting symptoms, risk of adverse event, and complexity of treatment plan. Pain Evaluation: Adequate Pain Control GI Prophylaxis: H2 chari VTE Prophylaxis: Theraputic Anticoag with Warfarin VTE Mechanical Devices: Intermittant Pneumatic CD Resuscitation Status: CPR: Attempt Resuscitation Time spent 30 min Stephon Lima MD Jun 05, 2016 16:43
--- NOTE | 2016-06-05 17:36 | NUR ---
spiritual care: pt request conversational visit. pt reflected on medical condition, concerns and his general satisfaction with his life. Nurtures relationships with family, daryl community and other, pt expressed his contentment. Pt shared personal history stories in a tone of hopefulness and positivity. visited last night, no additiona spiriutal care needs identified at moment.
--- NOTE | 2016-06-05 19:40 | NUR ---
INR/PTT INR 2.29 today, Vit K given to pt per MD's order. Possible heart cath tmr, NPO after midnight. PTT therapeutic x2 today next PTT in AM. No complaints of chest pain through the day, Nitro drip still going at 5mcg/min. Ongoing care.
[2016-06-05] MEDS: Nitroglycerin 50 mg/250 mL D5W Premix IV SCH (19:50)
[2016-06-06] VITALS (16 sets, daily range): BP systolic 125–172; BP diastolic 63–98; PULSE 59–88; RESP 13–19; O2SAT 95–98
[2016-06-06 03:38] LABS: INR 1.55 ratio
--- NOTE | 2016-06-06 06:37 | NUR ---
Cardiac/Arthritic pain/NPO Pt tele SR 60s-80s, pt denied chest pain all shift. Nitro and heparin gtt continues per orders. All vitals stable. Pt NPO at midnight except for PO Tylenol with sip of water this morning for arthritic pain in thumb. This and hot pack was effective at pain relief per pt.
[2016-06-06] MEDS: Multivit-Miner-Folic Acid-Iron Tablet PO SCH (08:28)
[2016-06-06] MEDS: Sodium Chloride LOK Flush 10 mL Syringe IVFLUSH SCH ×2 (08:33→16:30)
[2016-06-06] MEDS: Heparin 25K Unit/500mL 0.45 NS 25,000 UNIT in IV Premix 1 EACH IV SCH (09:24)
[2016-06-06 10:22] LABS: TROPONIN T 0.191 ug/L (0.0-0.011)
[2016-06-06] MEDS ORDERED: Heparin 1,000 Units/500 mL NS Premix IV ONE (14:39)
[2016-06-06] MEDS ORDERED: 0.9% Sodium Chloride 1,000 ML ONE (14:39)
[2016-06-06] MEDS ORDERED: Heparin 5,000 Units/500 mL NS Premix IV ONE (14:39)
[2016-06-06] MEDS ORDERED: Nitroglycerin 50,000 mcg/250 mL D5W Premix IV ONE (14:39)
[2016-06-06] MEDS ORDERED: Heparin 1,000 Unit/mL 10 mL Inj ONE (14:46)
[2016-06-06] MEDS ORDERED: fentaNYL-PF 50 mCg/mL 2 mL Inj ONE (15:46)
--- NOTE | 2016-06-06 15:56 | NUR ---
Safety Investigator Pt off floor to oil laboratory analyst. Telemetry notified. Pt transported in bed.
--- NOTE | 2016-06-06 19:39 | NUR ---
MICKY: Post cardiac cath Pt out of labor relations officer at 1710. Recovery uneventful. Right groin site soft and nontender. Vitals stable. Pt to be taken back to room 2022 around 1944. Report called earlier to GINNA Bryan.
--- NOTE | 2016-06-06 20:12 | CS94 ---
[address] [address] DIAGNOSTIC CARDIAC CATHETERIZATION PATIENT: SAE COUCH : 1930 MR#: [id number] ADMIT: 06/02/2016 JOB ID: [id number] SERVICE DATE: 06/06/2016 PATIENT PROFILE: The patient is an 85-year-old male who underwent coronary artery bypass surgery x3 in 1986 utilizing MESA graft to the LAD, saphenous vein graft to the first diagonal and saphenous vein graft to the ramus intermedius. He had a drug-eluting stent placement to the saphenous vein graft to the first diagonal branch in 2004 and 2008. He presented with acute coronary syndrome. PROCEDURE: 1. Retrograde left heart catheterization. 2. Selective coronayr angiography. 3. Internal mammary angiography. 4. Saphenous vein graft angiography. Vascular closure device: None. COMPLICATIONS: None. METHOD: Retrograde left heart catheterization was performed from the right groin under 1% lidocaine local anesthesia using a 6-Slovak sheath. Selective coronary angiogram was performed in multiple projections, including cranial and caudal angulations with hand injected contrast via JL4 and IM catheters. The JR4, AR2 and 3DRC catheters could not engage the right coronary ostium. A 4-Slovak IM catheter was used for internal mammary angiography. An AR1 catheter was used for saphenous vein graft injection. A 5-Slovak angulated pigtail catheter was advanced to left ventricle and left ventricular pressure was obtained. Right femoral angiogram was performed before sheath removal. Hemostasis was achieved by manual compression. The patient tolerated the procedure well. He was transferred to [facility] in good condition. TOTAL CONTRAST USED: 110 cc. FLUOROSCOPY TIME: 10.5 minutes. RESULTS: 1. Selective coronary angiography: a. The coronary arteries are heavily calcified. b. Left main coronary artery has moderate disease with intraluminal haziness from calcification. c. The left anterior descending artery is occluded in the proximal portion distal to the takeoff of the 1st septal branch. The 1st septal branch has severe 90% stenosis at its origin. d. The codominant circumflex artery has minor disease in the proximal portion and 70% stenosis in the distal portion. The first and second obtuse marginal branches are small and have diffuse disease. e. 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 This lesion is not amenable to percutaneous coronary intervention due to small vessel size and heavy calcification. 2. The left internal mammary artery graft to the left anterior descending artery is an excellent conduit. The left anterior descending artery distal to the graft anastomosis remains widely patent. 3. The saphenous vein graft to the ramus is occluded. 4. The saphenous vein graft to the first diagonal branch remains patent. The stent site in the proximal portion remains patent. The first diagonal branch distal to the graft anastomosis is quite small and has minor irregularity. 5. Aortic pressure is 178/79 mmHg. Left ventricular pressure is 184/9 mmHg. 6. Left ventricular end-diastolic pressure is 19 mmHg. CONCLUSION: 1. Heavily calcified coronary arteries. 2. Occluded left anterior descending artery with patent left internal mammary artery graft to the left anterior descending and patent saphenous vein graft to the first diagonal. 3. Occluded ramus with occluded saphenous vein graft to the ramus. 4. 60% to 70% stenosis of the distal circumflex artery. 5. Severe 95% stenosis of the mid right coronary artery. 6. Left ventricular end-diastolic pressure is 19 mmHg. RECOMMENDATION: Conservative medical management. Percutaneous intervention is not suitable due to heavily calcified arteries. MTDD
[2016-06-06] MEDS ORDERED: 0.9% Sodium Chloride 400 ML (4 HRS) IV ONE ×2 (20:25→20:30)
[2016-06-06] MEDS ORDERED: Ondansetron 2 mg/mL 2 mL Inj IVPUSH PRN (20:25)
[2016-06-06] MEDS ORDERED: 0.9% Sodium Chloride 250 ML BOLUS IV PRN (20:25)
[2016-06-06] MEDS ORDERED: 0.9% Sodium Chloride 1,000 ML IV ONE (20:38)
[2016-06-07] VITALS (9 sets, daily range): BP systolic 84–129; BP diastolic 50–59; PULSE 60–94; RESP 14–18; O2SAT 94–97
[2016-06-07] MEDS: Sodium Chloride LOK Flush 10 mL Syringe IVFLUSH SCH ×3 (00:30→18:36)
[2016-06-07 03:38] LABS: Mean Corpuscular Hemoglobin 30.6 pg (27.0-35.0); Mean Corpuscular Volume 98.7 fL (81-100)
[2016-06-07 03:54] LABS: INR 1.15 ratio
--- NOTE | 2016-06-07 06:20 | NUR ---
SOB Pt c/o SOB at start of shift and O2 was at 4L NC, pt encouraged to deep breathe and after breathing treatment was done pt was more at ease and not working so hard to breathe. Later in shift sats were high 90s on 4L and pt was titrated back down to 2L. Pt encouraged to cough and deep breathe as well as to call staff when needing to stand to urinate for safety. Pt was compliant with this. Pt monitored on COMMERCIAL PLUMBER, denied pain all shift. Addendum: 06/07/16 at 0625 by LEAH BUSTILLOS RN WRONG PATIENT
--- NOTE | 2016-06-07 06:25 | NUR ---
Previous Note Previous note on wrong patient.
--- NOTE | 2016-06-07 06:28 | NUR ---
Groin Site/Tele Pt's right groin site soft, no s/sx of hematoma. Pedal pulse palpable and pt reports good sensation in extremity. No oozing noted. Tele SR 60s most of night as pt slept. phlebotomy services technician reported 6 beats VTach, pt asymptomatic, MD aware. Pt denied chest pain this shift.
[2016-06-07] MEDS: Multivit-Miner-Folic Acid-Iron Tablet PO SCH (09:35)
[2016-06-07] MEDS: Isosorbide Mononitrate 60 mg ER24 Tablet PO SCH (11:31)
--- NOTE | 2016-06-07 15:18 | PCM.PNMED ---
Subjective Date of Service Jun 07, 2016 Subjective Patient doing well when I visit with him, family at bedside. Denies any current chest pain, nausea vomiting, abdominal pain. Exam Vital Signs Vital Sign - Last Date Time Temp Pulse Resp B/P Pulse Ox O2 Delivery O2 Flow Rate FiO2 06/07/16 13:34 72 95/52 06/07/16 11:33 36.7 18 97 Room Air 06/04/16 03:13 1.00 Intake and Output 06/06/16 06/06/16 06/07/16 Cumulative From/Thru 15:00 23:00 07:00 06/02/16 01:58 - 06/07/16 06:32 Intake Total 215 ml 1224 ml 7674 ml Output Total 700 ml 1075 ml 9100 ml Balance -485 ml 149 ml -1426 ml Intake Oral 0 ml 440 ml 5615 ml IV Total 215 ml 784 ml 2059 ml Output Urine Total 700 ml 1075 ml 9100 ml # Voids 3 # Bowel Movements 0 3 Exam General: Alert, Oriented X3, NAD Head: Normocephalic, atraumatic Eyes: JUANCHO, EOMI, no scleral Icterus Chest: clear to auscultation B/L, no wheezing rales or rhonchi Heart: Regular rate and rhythm. Normal S1, S2, no murmurs noted Abdomen: soft, non-tender. Bowel sounds are normoactive. No guarding or rebound. Extremities: no cyanosis, clubbing or edema. IVs and Medications Medications Reviewed: Medications were reviewed in detail Lab and Diagnostics Result Diagram: 06/07/16 0325 06/07/16 0325 X-Rays, CTs and MRIs No acute process. Radiology read pending. 12-lead ECG Sinus rhythm rate 92 APCs LBBB Assessment & Plan 85-year-old man with significant history of coronary artery disease and hypertension who presents to the ED via EMS with accelerated anginal symptoms onset prior to arrival and is admitted for NSTEMI. 1. NSTEMI, present on admission, active. -Status post coronary angiography 06/06/2016, LAD occlusion, RCA with 95% stenosis not amenable to percutaneous coronary intervention -Heavily calcified coronary arteries -Recommendations for conservative medical management, percutaneous intervention not recommended due to heavily calcified arteries. -Continue Imdur, Plavix, metoprolol, aspirin, atorvastatin and when necessary nitroglycerin 2. Chronic kidney disease Stage 3, stable. - Elevated renal function unchanged compared to labs in 2013. - Continue to monitor BMP daily. 3. Chronic normocytic anemia, stable. - Continue to monitor CBC. 4. Hypertension, chronic, stable. -Continue metoprolol, lisinopril 5. Hyperlipidemia, chronic, presume stable. - Continue statin CODE STATUS: Full code DVT prophylaxis: Heparin twice a day Disposition: Likely home one to 2 days, pending continued improvement. GI Prophylaxis: H2 chari VTE Prophylaxis: Theraputic Anticoag with Warfarin VTE Mechanical Devices: Intermittant Pneumatic CD Resuscitation Status: CPR: Attempt Resuscitation Marko Roldan DO Jun 07, 2016 15:18
--- NOTE | 2016-06-07 16:10 | PCM.PNCARD ---
Subjective Date of service Jun 07, 2016 Chief Complaint NSTEMI History of Present Illness 85 yo M h/o CAD s/p 3V CABG and stent admitted with chest pain consistent with NSTEMI. Subjective: No chest pain in the past 36 hours. Patient has not complaints and no questions. 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 as outpatient Exam Vital Signs Vital Sign - Last Date Time Temp Pulse Resp B/P Pulse Ox O2 Delivery O2 Flow Rate FiO2 06/07/16 15:25 36.4 86 113/54 97 Room Air 06/07/16 11:33 18 06/04/16 03:13 1.00 Intake and Output 06/06/16 06/06/16 06/07/16 Cumulative From/Thru 15:00 23:00 07:00 06/02/16 01:58 - 06/07/16 06:32 Intake Total 215 ml 1224 ml 7674 ml Output Total 700 ml 1075 ml 9100 ml Balance -485 ml 149 ml -1426 ml Intake Oral 0 ml 440 ml 5615 ml IV Total 215 ml 784 ml 2059 ml Output Urine Total 700 ml 1075 ml 9100 ml # Voids 3 # Bowel Movements 0 3 General appearance: No apparent distress, frail, pleasant, cooperative HEET: Normocephalic atraumatic, no scleral icterus, tongue midline, mucous membranes moist Neck: supple Cardiovascular: RRR, normal S1 and soft S2, + systolic murmur, PMI nondisplaced , no JVD, no LE edema Respiratory: Good aeration, CTAB Abdomen: Soft, nontender, nondistended, + bowel sounds Neuro: Alert, no facial droop, tongue midline, no gross motor deficits Lab and Diagnostics Result Diagram: 06/07/16 0325 06/07/16 0325 X-Rays, CTs and MRIs Cath 06/07/2015: 1. Heavily calcified coronary arteries. 2. Occluded left anterior descending artery with patent left internal mammary artery graft to the left anterior descending and patent saphenous vein graft to the first diagonal. 3. Occluded ramus with occluded saphenous vein graft to the ramus. 4. 60% to 70% stenosis of the distal circumflex artery. 5. Severe 95% stenosis of the mid right coronary artery. 6. Aortic pressure is 178/79 mmHg. Left ventricular pressure is 184/9 mmHg. 7. Left ventricular end-diastolic pressure is 19 mmHg. Assessment & Plan Assessment 85 yo M h/o CAD s/p 3V CABG and stent admitted with chest pain consistent with NSTEMI: # NSTEMI with CAD s/p 3v CABG (MESA->LAD, SVG->D1, SVG->RI) in 1986, CORNELL to SVG graft to D1 in 2004 and 2008. Patient underwent coronary and bypass angiography 06/06/2016 that showed severely calcific [place] coronaries and patent diagonal and LAD grafts but occluded ramus graft. Given complex CAD, advanced age, CKD, PCI of the [place] coronaries would be very high risk and our recommendation is to do maximal medical management. Patient and agree with the plan as below: - Okay to stop aspirin 81mg daily and start warfarin as below for DVTs - Continue clopidogrel 37.5mg daily - Continue atorvastatin 40mg qhs - Start imdur 60mg daily and uptitrate until angina resolves - Continue metoprolol 25mg bid - Continue lisinopril 5mg daily and uptitrate as needed for BP control - Consider coronary angiogram and PCI on separate days once INR < 1.7 # Moderate aortic stenosis: asymptomatic. Monitor clinically and with serial echo q1-2 years as outpatient # CKD: baseline Cr 1.6 and stable in the hospital. If BUN/Cr stable tomorrow ( > 24 hours after cath), patient can be discharged home. # HTN: BP under good control. Will continue to monitor. # HLD: statin as above # DVT history in 2007 and 2012: okay to restart warfarin and stop aspirin. F/U with Dr. Roldan ([facility]) in 2-4 weeks. Problems: Pain Evaluation: Adequate Pain Control GI Prophylaxis: H2 chari VTE Prophylaxis: Theraputic Anticoag with Warfarin VTE Mechanical Devices: Intermittant Pneumatic CD Resuscitation Status: CPR: Attempt Resuscitation Speedy Leary MD Jun 07, 2016 16:10
--- NOTE | 2016-06-07 16:27 | PCM.PHAPRO ---
Progress Date of Service: Jun 07, 2016 Warfarin dosing A/ Restarting warfarin --- was previously stable on home dose, currently subtherapeutic with an INR of 1.15. P/ Give 5mg warfarin today and reevaluate with AM labs tomorrow. Bayron Epstein Jun 07, 2016 16:27
--- NOTE | 2016-06-07 19:32 | NUR ---
Activity Cardiac:Pt denies CP, tele SR 70s-80s Resp: Pt denies SOB, SPO2 97% on RA. GI/: denies N/V Neuro: A&O, STEIN, Pt ambulated down the kiser and back 100 feet with FWW, tolerated well. SPO2 97% the entire way on RA, pt denies dizziness/lightheadedness.
[2016-06-07] MEDS: Heparin 5,000 Unit/mL Inj SUBQ SCH (20:35)
[2016-06-08] VITALS (8 sets, daily range): BP systolic 87–159; BP diastolic 45–73; PULSE 73–84; RESP 16–18; O2SAT 95–98
[2016-06-08] MEDS: Sodium Chloride LOK Flush 10 mL Syringe IVFLUSH SCH ×4 (00:59→19:43)
[2016-06-08 04:07] LABS: Mean Corpuscular Hemoglobin 31.2 pg (27.0-35.0); Mean Corpuscular Volume 98.9 fL (81-100)
[2016-06-08 04:22] LABS: INR 1.06 ratio
--- NOTE | 2016-06-08 05:36 | NUR ---
Hypotension: HS metoprolol held got SBP in the low 90s. Repeat BP 84/50. pt asymptomatic MAP greater then 60. When BP rechecked this am SBP in the low 100s. Pt sleeping throughout night. no c/o pain.
[2016-06-08] MEDS: Isosorbide Mononitrate 60 mg ER24 Tablet PO SCH (08:44)
[2016-06-08] MEDS: Multivit-Miner-Folic Acid-Iron Tablet PO SCH (08:44)
[2016-06-08] MEDS: Heparin 5,000 Unit/mL Inj SUBQ SCH (08:45)
--- NOTE | 2016-06-08 10:22 | NUR ---
DILIA DILIA signed
--- NOTE | 2016-06-08 11:28 | NUR ---
BP Per report pt BP 93/52. 84/50, 100/52. Held Metoprolol. MD notified. Care continues.
--- NOTE | 2016-06-08 11:47 | PCM.PHAPRO ---
Progress Date of Service: Jun 08, 2016 Warfarin dosing INR = 1.06 HCT = 28.2 PLTS = 129 Pt continues on warfarin therapy for h/o of DVT in 2007 & 2012. Goal INR = 2- 3. Warfarin previously on hold for procedure. Will give another dose of warfarin 5mg PO tonight. INRs ordered. Pharmacy will follow this pt's warfarin therapy. Adenike Keller PharmD Jun 08, 2016 11:47
--- NOTE | 2016-06-08 13:27 | NUR ---
BP Pt Noon BP 87/45 times two by MIXER AND BLENDER laying. Retake by RN 86/90 sitting, manual BP by RN 90/60. Notified
[2016-06-08] MEDS ORDERED: 0.9% Sodium Chloride 500 ML IV ONE (14:00)
--- NOTE | 2016-06-08 14:22 | PCM.PNMED ---
Subjective Date of Service Jun 08, 2016 Subjective First well today, no chest pain. He does state he has been drinking and urinating frequently. No nausea vomiting, diarrhea or constipation. Exam Vital Signs Vital Sign - Last Date Time Temp Pulse Resp B/P Pulse Ox O2 Delivery O2 Flow Rate FiO2 06/08/16 12:00 36.5 84 16 87/45 96 Room Air 06/04/16 03:13 1.00 Intake and Output 06/07/16 06/07/16 06/08/16 Cumulative From/Thru 15:00 23:00 07:00 06/02/16 01:58 - 06/08/16 05:02 Intake Total 1400 ml 560 ml 9634 ml Output Total 850 ml 250 ml 62029 ml Balance 550 ml 310 ml -566 ml Intake Oral 1400 ml 560 ml 7575 ml IV Total 2059 ml Output Urine Total 850 ml 250 ml 59126 ml # Voids 3 # Bowel Movements 0 3 Exam General: Alert, Oriented X3, NAD Head: Normocephalic, atraumatic Eyes: JUANCHO, EOMI, no scleral Icterus Chest: clear to auscultation B/L, no wheezing rales or rhonchi Heart: Regular rate and rhythm. Normal S1, S2, no murmurs noted Abdomen: soft, non-tender. Bowel sounds are normoactive. No guarding or rebound. Extremities: no cyanosis, clubbing or edema. IVs and Medications Medications Reviewed: Medications were reviewed in detail Lab and Diagnostics Result Diagram: 06/08/16 0350 06/08/16 0350 X-Rays, CTs and MRIs No acute process. Radiology read pending. 12-lead ECG Sinus rhythm rate 92 APCs LBBB Assessment & Plan 85-year-old man with significant history of coronary artery disease and hypertension who presents to the ED via EMS with accelerated anginal symptoms onset prior to arrival and is admitted for NSTEMI. 1. NSTEMI, present on admission, active. -Status post coronary angiography 06/06/2016, LAD occlusion, RCA with 95% stenosis not amenable to percutaneous coronary intervention -Heavily calcified coronary arteries -Recommendations for conservative medical management, percutaneous intervention not recommended due to heavily calcified arteries. -Continue Imdur, Plavix, metoprolol, aspirin, atorvastatin and when necessary nitroglycerin 2. Acute on Chronic kidney disease Stage 3. - Worse today possibly secondary to hypotension versus contrast nephropathy - Elevated renal function unchanged compared to labs in 2013. - Continue to monitor BMP daily. - Hold lisinopril 3. Chronic normocytic anemia, stable. - Continue to monitor CBC. 4. Hypertension, chronic, stable. -Continue metoprolol, hold lisinopril 5. Hyperlipidemia, chronic, presume stable. - Continue statin CODE STATUS: Full code DVT prophylaxis: Heparin twice a day Disposition: Likely home one to 2 days, pending continued improvement. GI Prophylaxis: H2 chari VTE Prophylaxis: Theraputic Anticoag with Warfarin VTE Mechanical Devices: Intermittant Pneumatic CD Resuscitation Status: CPR: Attempt Resuscitation Marko Roldan DO Jun 08, 2016 14:22
--- NOTE | 2016-06-08 17:09 | NUR ---
Social Work: Readiness for Discharge D: Pt discussed in am rounds. Pt is not medically stable for discharge today but is anticipated to be ready tomorrow. Pt has been I during admission and is eager to get home. CASEWORK SUPERVISOR met with pt at bedside to discuss unmet needs or barriers. Pt reports no concerns with d/c home and has been ambulating I during admission. pt states his will transport. EMR reviewed and no sw needs identified. A: Pt who is I at baseline. P: Anticipate pt to discharge home via POV; CASEWORK SUPERVISOR to continue to follow. SAMMIE Farooq
--- NOTE | 2016-06-08 18:28 | NUR ---
BP BP increased to 106/60 after 500 mL bolus and 450 mL water. Care continues.
[2016-06-09] VITALS (7 sets, daily range): BP systolic 97–162; BP diastolic 51–92; PULSE 68–83; RESP 16–18; O2SAT 95–98
[2016-06-09 07:04] LABS: INR 1.14 ratio
[2016-06-09] MEDS: Multivit-Miner-Folic Acid-Iron Tablet PO SCH (09:11)
[2016-06-09] MEDS: Isosorbide Mononitrate 60 mg ER24 Tablet PO SCH (09:12)
[2016-06-09] MEDS: Sodium Chloride LOK Flush 10 mL Syringe IVFLUSH SCH (09:13)
--- NOTE | 2016-06-09 11:07 | NUR ---
Ambulation Pt walked with this RN around unit once, denied SOB, chest pain or lightheadedness. Pt walked with around unit as well, tolerated well. Care continues.
[2016-06-09 11:11] LABS: Mean Corpuscular Hemoglobin 30.9 pg (27.0-35.0); Mean Corpuscular Volume 98.8 fL (81-100)
[2016-06-09 12:22] LABS: TROPONIN T 0.191 ug/L (0.0-0.011)
[2016-06-09] MEDS ORDERED: LISI-610 PO (12:40)
[2016-06-09] MEDS ORDERED: ISOS60TA2 PO (12:40)
--- NOTE | 2016-06-09 12:45 | PCM.DIMED ---
Discharge Instructions Date of Service Jun 09, 2016 Dates of Hospitalization Jun 02, 2016 at 03:20 Discharge Diagnosis Discharge Diagnosis Coronary artery disease- medical management Chronic kidney disease Diet Low fat, Low Sodium, Heart Healthy Activity Limited until seen by PCP Call your provider Shortness of breath, Bleeding, Chest pain, Weakness (unilateral) Patient Instructions Follow-up plan Follow-up with cardiology, Dr. Roldan in 2-3 weeks Follow-up with PCP in one week, sooner if his condition worsens in anyway. Follow-up with PCP in: 1 week Marko Roldan DO Jun 09, 2016 12:45
--- NOTE | 2016-06-09 14:30 | NUR ---
Social Work Note: Discharge Data& Assessment: Per pt is medically ready for discharge. Celso Parisi Jr. is a 85 year old male admitted on 06/02/2016 for NONSTEMI. Per pt is medically improved and ready to discharge home via POV. Pt is ambulating at his baseline independently. Pt transporting pt home. No other discharge needs identified. All updated and agreeable to plan. Plan: Per pt is medically ready for discharge. No other discharge needs identified. All updated and agreeable to plan. SAMMIE Ortiz
--- NOTE | 2016-06-09 15:06 | NUR ---
Discharge Pt discharged at approximately 1455 to home with . Patient given educational material for Coronary Artery Disease, next dose to be taken clearly written and dated, with two new prescriptions. Bilateral IV's DC'd with catheters intact, tele DC'd oral surgery technician notified. Pt left with all personal belongings. Escorted by FUEL ATTENDANT in wheelchair to the front door.
--- NOTE | 2016-06-09 19:01 | PCM.DC.MED ---
Discharge Summary Date of Service Jun 09, 2016 Dates of Hospitalization Date of Hospital Admission Jun 02, 2016 at 03:20 Date of Discharge: Jun 09, 2016 Providers: Admitting Physician: Gemma Lyn DO Primary Care Physician: Bayron Kelly MD Attending Physician: Gemma Lyn DO Diagnosis at Time of Discharge Diagnosis at Time of Discharge Coronary artery disease- medical management Chronic kidney disease Consultations Cardiology Procedures XRay, CTs & MRIs No acute process. Radiology read pending. ECG 12 Lead Sinus rhythm rate 92 APCs LBBB Cardiac Echo Impression 06/02/2016 Interpretation Summary 1. Normal left ventricular size with mildly increased wall thickness and normal systolic function with an estimated EF of 55% 2. Normal right ventricular size and systolic function. 3. Evidence for moderate aortic stenosis with trace insufficiency. 4. Moderate mitral regurgitation into a dilated left atrium Brief History 85 yo M h/o CAD s/p 3V CABG and stent admitted with chest pain consistent with NSTEMI. Hospital Course 85-year-old man with significant history of coronary artery disease and hypertension who presents to the ED via EMS with accelerated anginal symptoms onset prior to arrival and is admitted for NSTEMI. Cardiology was consulted and he did have coronary artery angiography 06/06/2016 with diffuse coronary artery disease and noted heavily calcified coronary arteries not amenable to percutaneous intervention. Medical management was recommended, his medications were optimized as best as possible. He did have an elevated creatinine secondary to contrast, he was kept another day for evaluation and his renal function did improve enough that he was thought stable for discharge. The patient remained stable through his hospital stay and chest pain-free. He was discharged home in stable condition and will need to follow-up with cardiology within 1-3 weeks. He is also instructed follow up with his primary care physician within one week, sooner if his condition worsens in anyway. Delineated problem list as below. 1. NSTEMI, present on admission, active. -Status post coronary angiography 06/06/2016, LAD occlusion, RCA with 95% stenosis not amenable to percutaneous coronary intervention -Heavily calcified coronary arteries -Recommendations for conservative medical management, percutaneous intervention not recommended due to heavily calcified arteries. -Continue Imdur, Plavix, metoprolol, aspirin, atorvastatin and when necessary nitroglycerin 2. Acute on Chronic kidney disease Stage 3. - Worse today possibly secondary to hypotension versus contrast nephropathy - Elevated renal function unchanged compared to labs in 2013. - Continue to monitor BMP daily. - Hold lisinopril 3. Chronic normocytic anemia, stable. - Continue to monitor CBC. 4. Hypertension, chronic, stable. -Continue metoprolol, hold lisinopril 5. Hyperlipidemia, chronic, presume stable. - Continue statin Exam Vital Signs (Last) Date Time Temp Pulse Resp B/P Pulse Ox O2 Delivery O2 Flow Rate FiO2 06/09/16 12:28 36.6 68 16 97/60 98 Room Air 06/04/16 03:13 1.00 Test 06/02/16 02:05 06/02/16 09:00 06/02/16 11:02 06/02/16 17:34 Hold Thomas Top Tube Received (Received) Neutrophils (%) (Auto) 79.3% (40-74) Lymphocytes (%) (Auto) 14.9% (14-46) Monocytes (%) (Auto) 5.3% (4-12) Eosinophils (%) (Auto) 0% (0-5) Basophils (%) (Auto) 0.1% (0-3) Magnesium Level 1.9mg/dL (1.6-2.6) Pro-B-Type Natriuretic Peptide 5009pg/mL (0-486) Triglycerides Level 64mg/dL (0-149) Cholesterol Level 141mg/dL (100-199) LDL Cholesterol, Calculated 82.200mg/dL (0-99) VLDL Cholesterol 12.800mg/dL HDL Cholesterol 46mg/dL (>39) Cholesterol/HDL Ratio 3.07 (0.0-4.4) Total Creatine Kinase 108U/L (21-232) Creatine Kinase MB 7.9ng/mL (0.0-10.4) Creatine Kinase MB % 7.3% (0.0-5.0) Urine Color Yellow (YELLOW) Urine Appearance Clear (CLEAR,HAZY) Urine pH 6.0 (5.0-8.0) Urine Specific [place] 1.020 (1.003-1.035) Urine Protein 100mg/dL (NEG,TRACE) Urine Glucose (UA) Negativemg/dL (NEGATIVE) Urine Ketones Negativemg/dL (NEGATIVE) Urine Occult Blood Trace (NEGATIVE) Urine Nitrite Negative (NEGATIVE) Urine Bilirubin Negative (NEGATIVE) Urine Urobilinogen Normalmg/dL (NORMAL) Urine Leukocyte Esterase Negative (NEGATIVE) Urine RBC 0-2/hpf (0-2) Urine WBC 0-5/hpf (0-5) Urine Epithelial Cells Occasional/hpf (NONE-MOD) Urine Crystals None seen (NONE SEEN) Urine Bacteria None/hpf (NONE-FEW) Urine Hyaline Casts None/lpf (NONE) Urine Granular Casts None seen (NONE SEEN) Urine Waxy Casts None seen (NONE SEEN) Urine Red Blood Cell Casts None seen (NONE SEEN) Urine White Blood Cell Casts None seen (NONE SEEN) Urine Mucus None seen (None Seen) Urine Trichomonas None seen (NONE SEEN) Urine Yeast None (NONE SEEN) Urinalysis Comment None Urine Culture Reflexed Not indicated Test 06/04/16 03:55 06/06/16 14:55 06/09/16 05:50 06/09/16 10:55 Total Bilirubin 0.2mg/dL (0.0-1.2) Aspartate Amino Transf (AST/SGOT) 23U/L (0-50) Alanine Aminotransferase (ALT/SGPT) 8U/L (0-44) Alkaline Phosphatase 39U/L (25-160) Total Protein 6.0g/dL (6.4-8.4) Albumin 3.2g/dL (3.4-5.0) Activated Partial Thromboplast Time 56.8sec (22.8-33.0) Prothrombin Time 12.2sec (8.1-12.5) Prothromb Time International Ratio 1.14ratio White Blood Count 6.4th/mm3 (3.8-10.1) Red Blood Count 3.20mil/mm3 (4.40-5.80) Hemoglobin 9.9g/dL (13.8-17.2) Hematocrit 31.6% (41.0-50.0) Mean Corpuscular Volume 98.8fL (81-100) Mean Corpuscular Hemoglobin 30.9pg (27.0-35.0) Mean Corpuscular Hemoglobin Concent 31.3% (32.0-37.0) Red Cell Distribution Width 14.0% (12.3-15.4) Platelet Count 148bil/L (150-400) Sodium Level 140mEq/L (134-144) Potassium Level 4.9mEq/L (3.5-5.2) Chloride Level 105mEq/L (97-108) Carbon Dioxide Level 20mmol/L (18-29) Blood Urea Nitrogen 34mg/dL (8-27) Creatinine 1.95mg/dL (0.76-1.27) Estimat Glomerular Filtration Rate 35mL/min (>59) Glucose Level 151mg/dL (60-99) Calcium Level 8.9mg/dL (8.5-10.1) Troponin T 0.191ug/L (0.0-0.011) Discharge Medications Discharge Medications Alfuzosin ER (Alfuzosin ER) 10 Mg Tab.er.24h 10 MG PO DAILY (Reported) Allopurinol (Allopurinol) 300 Mg Tablet 300 MG PO DAILY (Reported) Clopidogrel Bisulfate (Plavix) 75 Mg Tablet 37.5 MG PO DAILY (Reported) Finasteride (Finasteride) 5 Mg Tablet 5 MG PO DAILY (Reported) Isosorbide MN ER (Isosorbide MN ER) 60 Mg Tab.er.24h 60 MG PO 0730 Prescribed by: NILESH ROLDAN DO Lisinopril (Zestril) 10 Mg Tablet 10 MG PO DAILY Prescribed by: NILESH ROLDAN DO Metoprolol Tartrate (Metoprolol Tartrate) 25 Mg Tablet 25 MG PO BID (Reported) Multivitamin/Iron/Folic Acid (Daily Vit Formula + Iron Tab) 18 Mg Iron-400 Mcg Tablet 1 EACH PO DAILY (Reported) [place]-3 Fatty Acids/Fish Oil ([place] 3 1,000 mg Softgel) 1 Each Capsule 1 EACH PO DAILY (Reported) Ranitidine (Zantac) 150 Mg Tablet 150 MG PO DAILY (Reported) Simvastatin (Zocor) 40 Mg Tablet 40 MG PO HS (Reported) Triamcinolone Acet (Triamcinolone Acetonide Cream) 4 Applic/Gm Cr 1 APPLIC TOP BID (Reported) As needed Acetaminophen (Acetaminophen) 325 Mg Tablet 500 MG PO Q4H PRN PRN For Pain ( Reported) Hydrocodone-Acetaminophen 5-300 mg (Hydrocodone-Acetaminophen 5-300 mg) 1 Each Tablet 1 TABLET PO Q4H PRN PRN For Pain (Reported) Nitroglycerin (Nitroglycerin) 0.3 Mg Tab.subl 0.4 MG SL PRN For Chest Pain ( Reported) Miscellaneous Medications Warfarin Sodium (Warfarin Sodium) 2.5 Mg Tablet 2.5 MG PO (Reported) Warfarin Sodium (Warfarin Sodium) 5 Mg Tablet 5 MG PO (Reported) Followup Plan Follow-up plan Follow-up with cardiology, Dr. Roldan in 2-3 weeks Follow-up with PCP in one week, sooner if his condition worsens in anyway. Discharge Diet: Low fat, Low Sodium, Heart Healthy Discharge Activity: Limited until seen by PCP Follow-up with PCP in: 1 week Time spent 45 minutes Nilesh Roldan DO Jun 09, 2016 19:01
== END 2016-06-09 15:04 | disposition home or self-care (01) | DRG 281 ==
LOC: SED 01:39 → PCC 03:20
PROVIDERS: ADMIT Internal Medicine; ATTEND Internal Medicine
PROC: 4A023N7 Measurement of Cardiac Sampling and Pressure, Left Heart, Percutaneous Approach (ICD-10-PCS; principal; 2016-06-06)
PROC: B2111ZZ Fluoroscopy of Multiple Coronary Arteries using Low Osmolar Contrast (ICD-10-PCS; 2016-06-06)
PROC: B2181ZZ Fluoroscopy of Left Internal Mammary Bypass Graft using Low Osmolar Contrast (ICD-10-PCS; 2016-06-06)
PROC: B2131ZZ Fluoroscopy of Multiple Coronary Artery Bypass Grafts using Low Osmolar Contrast (ICD-10-PCS; 2016-06-06)
DX: I21.4 Non-ST elevation (NSTEMI) myocardial infarction (principal); N17.9 Acute kidney failure, unspecified; N18.3 Chronic kidney disease, stage 3 (moderate); I35.0 Nonrheumatic aortic (valve) stenosis; N14.4 Toxic nephropathy, not elsewhere classified; T50.8X5A Adverse effect of diagnostic agents, initial encounter; I12.9 Hypertensive chronic kidney disease with stage 1 through stage 4 chronic kidney disease, or unspecified chronic kidney disease; D64.9 Anemia, unspecified; E78.5 Hyperlipidemia, unspecified; Z95.1 Presence of aortocoronary bypass graft; Z95.5 Presence of coronary angioplasty implant and graft; Z87.891 Personal history of nicotine dependence; Z79.01 Long term (current) use of anticoagulants; Z79.82 Long term (current) use of aspirin

== ENCOUNTER 2016-07-07 22:03 | Inpatient (IN) | payer MEDICARE, OTHER ==
[~2016-07-07] VITALS: Ht 172.7 cm; Wt 86.0 kg
[~2016-07-07 22:03] MED LIST: ACET325T51 PO; ALFU10TA11 PO; ALLO300T2 PO; CLOP75TA3 PO; FINA5TAB9 PO; HYDR-3090 PO; ISOS60TA2 PO; LISI-610 PO; METO25TA6 PO; NITR0.3T6 SL; OMEG1CAP56 PO; RANI150T11 PO; SIMV40TA2 PO; TR5C15 TOP; WARF2.5T82 PO; WARF5TAB7 PO; [UNRECOGNIZED DRUG - CODE] PO
[2016-07-07 22:16] VITALS: BP 144/72; PULSE 85; RESP 21; O2SAT 98
[2016-07-07 22:24] VITALS: BP 144/72; PULSE 85; RESP 21; O2SAT 98
--- NOTE | 2016-07-07 22:26 | ED.REPORT ---
HPI-Chest Pain 40 and Over Date of Service July 07, 2016 ED Provider: Olman Ricketts MD An 85 year old male with a history of CABG, CAD and KS in 06/2015 is brought to the ED via EMS due to chest pain. The pain began this evening following dinner. The pt describes this pain as a "pressure" in his chest. He took three nitro over approximately 15 minutes, which relieved his symptoms somewhat. He was given two additional nitro by paramedics en route. This resolved the pain, but it is beginning to return in the ED. The pt states that his symptoms are similar to those he experienced in 06/2016 and that it is his typical anginal pain. Nursing Notes Stated Complaint: CHEST PAIN Chief Complaint: Chest Pain Nursing Notes Reviewed: Yes Allergies: Coded Allergies: Penicillins (Verified Allergy, Unknown, 07/07/16) erythromycin base (Verified Allergy, Unknown, 07/07/16) fluorouracil (Verified Allergy, Unknown, 07/07/16) Scheduled Alfuzosin ER (Alfuzosin ER) 10 Mg Tab.er.24h 10 MG PO DAILY Allopurinol (Allopurinol) 300 Mg Tablet 300 MG PO DAILY Clopidogrel Bisulfate (Plavix) 75 Mg Tablet 37.5 MG PO DAILY Finasteride (Finasteride) 5 Mg Tablet 5 MG PO DAILY Isosorbide MN ER (Isosorbide MN ER) 60 Mg Tab.er.24h 60 MG PO 0730 Lisinopril (Zestril) 10 Mg Tablet 10 MG PO DAILY Metoprolol Tartrate (Metoprolol Tartrate) 25 Mg Tablet 25 MG PO BID Multivitamin/Iron/Folic Acid (Daily Vit Formula + Iron Tab) 18 Mg Iron-400 Mcg Tablet 1 EACH PO DAILY [place]-3 Fatty Acids/Fish Oil ([place] 3 1,000 mg Softgel) 1 Each Capsule 1 EACH PO DAILY Ranitidine (Zantac) 150 Mg Tablet 150 MG PO DAILY Simvastatin (Zocor) 40 Mg Tablet 40 MG PO HS Triamcinolone Acet (Triamcinolone Acetonide Cream) 4 Applic/Gm Cr 1 APPLIC TOP BID Scheduled PRN Acetaminophen (Acetaminophen) 325 Mg Tablet 500 MG PO Q4H PRN PRN For Pain Hydrocodone-Acetaminophen 5-300 mg (Hydrocodone-Acetaminophen 5-300 mg) 1 Each Tablet 1 TABLET PO Q4H PRN PRN For Pain Nitroglycerin (Nitroglycerin) 0.3 Mg Tab.subl 0.4 MG SL PRN For Chest Pain Miscellaneous Medications Warfarin Sodium (Warfarin Sodium) 2.5 Mg Tablet 2.5 MG PO Warfarin Sodium (Warfarin Sodium) 5 Mg Tablet 5 MG PO General Time Seen by MD: 22:26 Chief Complaint Chest pain Hx Obtained From: Patient, EMS Arrived By: Ambulance Sudden in Onset?: Yes Onset Occurred: 1 - 4 hours ago Recent Healthcare: Recent doctor visit, Recent hospitalization Similar Sx Previous: Yes Past Medical History Past Medical History CAD Hypertension [place] 06/2016 Past Surgical History CABG Total left knee stent Smoking History Former Smoker Ambulatory Status Independent Review of Systems Respiratory: Denies: Non-productive cough Cardiovascular: Reports: Chest pain GI: Denies: Abdominal pain Skin: Denies Rash Complete sys rev & neg: except as marked. Physical Exam Initial Vital Signs Vital Signs (First) Date Time Temp Pulse Resp B/P Pulse Ox O2 Delivery O2 Flow Rate FiO2 07/07/16 22:16 36.9 85 21 144/72 98 Nasal Cannula 2 Initial VS: Reviewed General/Constitutional: Awake, Alert Respiratory / Chest: Atraumatic, Breath sounds NL, Breath sounds = bilat, No respiratory distress Cardiovascular: Heart rate NL, Regular rhythm, Heart sounds NL Abdomen: Atraumatic, Soft, Non-tender Neck: Atraumatic, Supple, Full range of motion Back: Atraumatic, Full range of motion Lower Extremity / Pelvis / MS: Atraumatic, Full range of motion Skin: Atraumatic, Color NL, No rash, Warm, Dry Neurologic: Oriented X3, Speech NL, No motor deficits, No sensory deficits Psychiatric: Affect NL, Mood NL Head / Eyes: Atraumatic, Normocephalic, PERRL, EOMI ENT: Atraumatic, Airway patent, Mucous membranes moist Upper Extremity / MS: Atraumatic, Full range of motion Interpretation & Diagnostics Lab Results Interpretation Result Diagram: 07/07/16 22407/07/16 224 Test 07/07/16 22:45 White Blood Count 6.9th/mm3 (3.8-10.1) Red Blood Count 2.98mil/mm3 (4.40-5.80) Hemoglobin 9.3g/dL (13.8-17.2) Hematocrit 29.2% (41.0-50.0) Mean Corpuscular Volume 98.0fL (81-100) Mean Corpuscular Hemoglobin 31.2pg (27.0-35.0) Mean Corpuscular Hemoglobin Concent 31.8% (32.0-37.0) Red Cell Distribution Width 14.0% (12.3-15.4) Platelet Count 136bil/L (150-400) Neutrophils (%) (Auto) 60.5% (40-74) Lymphocytes (%) (Auto) 21.6% (14-46) Monocytes (%) (Auto) 11.3% (4-12) Eosinophils (%) (Auto) 5.8% (0-5) Basophils (%) (Auto) 0.7% (0-3) Prothrombin Time 22.4sec (8.1-12.5) Prothromb Time International Ratio 2.06ratio Sodium Level 141mEq/L (134-144) Potassium Level 4.2mEq/L (3.5-5.2) Chloride Level 107mEq/L (97-108) Carbon Dioxide Level 19mmol/L (18-29) Blood Urea Nitrogen 39mg/dL (8-27) Creatinine 1.69mg/dL (0.76-1.27) Estimat Glomerular Filtration Rate 41mL/min (>59) Glucose Level 133mg/dL (60-99) Calcium Level 8.2mg/dL (8.5-10.1) Magnesium Level 1.6mg/dL (1.6-2.6) Total Bilirubin 0.2mg/dL (0.0-1.2) Aspartate Amino Transf (AST/SGOT) 21U/L (0-50) Alanine Aminotransferase (ALT/SGPT) 9U/L (0-44) Alkaline Phosphatase 56U/L (25-160) Troponin T 0.060ug/L (0.0-0.011) Total Protein 6.0g/dL (6.4-8.4) Albumin 3.2g/dL (3.4-5.0) Hold Thomas Top Tube Received (Received) ECG Interpretation ECG Interpretation: normal sinus rhythm with a rate of 78 LBBB, unchanged from previous Time: 22:24 Interpreted by: ED physician X-Ray Chest Interpretation Chest Xray Interpretation: wide mediastinum on right no change from 06/02/2016 Interpretation / Wet Read by: Wet read ED physician Re-Eval/Medical Decision Source of Hx: Old records Time of Eval: 23:13 Re-Evaluation/Progress Note: Pt rechecked, who is comfortable. Diagnosis and the plan for admission are discussed. The pt understands and agrees with the plan. All questions are addressed at this time. Time of Eval: 23:40 Re-Evaluation/Progress Note: Pt rechecked, who is resting. Medication usage is discussed. Consultation #1: Referral / Consult Name: Matthew Velez MD Consulted With: Hospitalist Call Returned at: 23:30 Test Boring Crew Chief: Agrees with eval, Agrees with plan, Accepts admit Note: Spoke with Dr. Velez, hospitalist, regarding pt's case. Dr. Velez requests cardiology consult. Consultation #2: Referral / Consult Name: Abby Terry MD Consulted With: Cardiology Call Returned at: 23:36 Test Boring Crew Chief: Agrees with eval, Agrees with plan Note: Consulted with Dr. Terry, cardiology, regarding pt's case. Dr. Terry recommends heparin only if INR is not therapeutic. Consultation #3: Referral / Consult Name: Matthew Velez MD Consulted With: Hospitalist Call Returned at: 23:49 Test Boring Crew Chief: Agrees with eval, Agrees with plan Note: Spoke with Dr. Velez, hospitalist, regarding pt's case. Dr. Velez agrees with the evaluation and agrees to admit the pt. Counseled Regarding: Diagnosis, Lab results, Need for admission Discharge & Departure Primary Impression: Angina pectoris Disposition: ADMITTED TO HOSPITAL Discharge Condition All VS Reviewed: Yes Condition: Stable Referrals: Bayron Kelly MD (PCP) Billy Attestation Portions of this note were transcribed by Chase Orr. I, Dr. Ricketts personally performed the history, physical exam and medical decision-making; I reviewed and confirmed the accuracy of the information in the transcribed note. Signed by: Billy Paul, 07/07/16 and [id number]. copies to: Bayron Kelly MD, Kirk H MD July 07, 2016 22:26 CHASE ORR July 07, 2016 22:33
[2016-07-07] MEDS ORDERED: Isosorbide Mononitrate 30 mg ER24 Tablet PO ONE (22:45)
[2016-07-07 22:55] LABS: BASOPHILS % (AUTO) 0.7 % (0-3); EOSINOPHILS % (AUTO) 5.8 % (0-5); MONOCYTES % (AUTO) 11.3 % (4-12); Mean Corpuscular Hemoglobin 31.2 pg (27.0-35.0); NEUTROPHILS % (AUTO) 60.5 % (40-74); Platelet Count 136 bil/L (150-400)
[2016-07-07 22:58] VITALS: BP 160/72; PULSE 83; RESP 17; O2SAT 97
[2016-07-07 23:29] LABS: Magnesium 1.6 mg/dL (1.6-2.6)
[2016-07-07 23:33] LABS: TROPONIN T 0.06 ug/L (0.0-0.011)
[2016-07-07 23:54] LABS: INR 2.06 ratio
[2016-07-08] VITALS (11 sets, daily range): BP systolic 124–178; BP diastolic 56–86; PULSE 58–94; RESP 16–20; O2SAT 94–99
--- NOTE | 2016-07-08 00:51 | PCM.HPMED ---
Subjective Date of Service July 08, 2016 Primary Provider: Admitting Physician: Matthew Velez MD Primary Care Physician: Bayron Kelly MD Attending Physician: Matthew Velez MD Admit Status: From the Emergency Department Chief Complaint: Chest pressure History of Present Illness: This is a 85-year-old male with past medical history significant for coronary artery disease status post CABG and multiple stents, hypertension, and hyperlipidemia who presents today with chest pressure. The patient states that the chest pressure began after dinner around 7:30 PM this evening. He took 3 nitroglycerin over approximately 15 minutes which did help his symptoms somewhat. By the time he reached the emergency department his pain had mostly resolved. The pain is described as pressure and substernal. He states it is the same pain he has had with previous heart attacks. He denies any shortness of breath, fevers, nausea, vomiting, diarrhea, diaphoresis, numbness or tingling extremities. The patient's most recent hospitalization was on 06/02/2016 for chest pressure. Echocardiogram at that time showed EF of 55%, moderate aortic stenosis, moderate mitral regurgitation. He had a cardiac catheterization completed which showed heavily calcified coronary arteries, occluded left anterior descending artery with patent left internal mammary artery graft, occluded ramus with occluded saphenous vein graft to the ramus, 60-70% stenosis of the distal circumflex artery, severe 95% stenosis of the mid right coronary artery. It was noted that percutaneous intervention was not suitable due to the heavily calcified arteries. Recommendation was for conservative medical management. In the emergency department vitals were: temperature 36.9 Celsius, pulse 86, respiratory rate 21, blood pressure 144/72, satting at 98% on 2 L by nasal cannula. Initial laboratory values: WBC 6.9, hemoglobin 9.3, hematocrit 29.2, platelets 136. BUN 39, creatinine 1.69, calcium 8.2, albumin 3.2, troponin 0.060. Patient has had multiple elevated troponins the past. Patient has also had multiple elevated creatinines in the past. In the emergency departments the patient was provided with isosorbide mononitrate and Nitrostat with continued relief of pain. Review of Systems: Pertinent positives as noted in HPI. All other systems were reviewed and are negative Allergies Coded Allergies: Penicillins (Verified Allergy, Unknown, 07/07/16) erythromycin base (Verified Allergy, Unknown, 07/07/16) fluorouracil (Verified Allergy, Unknown, 07/07/16) Home Medications Alfuzosin ER (Alfuzosin ER) 10 Mg Tab.er.24h 10 MG PO DAILY Allopurinol (Allopurinol) 300 Mg Tablet 300 MG PO DAILY Clopidogrel Bisulfate (Plavix) 75 Mg Tablet 37.5 MG PO DAILY Finasteride (Finasteride) 5 Mg Tablet 5 MG PO DAILY Isosorbide MN ER (Isosorbide MN ER) 60 Mg Tab.er.24h 60 MG PO 0730 Lisinopril (Zestril) 10 Mg Tablet 10 MG PO DAILY Metoprolol Tartrate (Metoprolol Tartrate) 25 Mg Tablet 25 MG PO BID Multivitamin/Iron/Folic Acid (Daily Vit Formula + Iron Tab) 18 Mg Iron-400 Mcg Tablet 1 EACH PO DAILY [place]-3 Fatty Acids/Fish Oil ([place] 3 1,000 mg Softgel) 1 Each Capsule 1 EACH PO DAILY Ranitidine (Zantac) 150 Mg Tablet 150 MG PO DAILY Simvastatin (Zocor) 40 Mg Tablet 40 MG PO HS Triamcinolone Acet (Triamcinolone Acetonide Cream) 4 Applic/Gm Cr 1 APPLIC TOP BID Scheduled PRN Acetaminophen (Acetaminophen) 325 Mg Tablet 500 MG PO Q4H PRN PRN For Pain Hydrocodone-Acetaminophen 5-300 mg (Hydrocodone-Acetaminophen 5-300 mg) 1 Each Tablet 1 TABLET PO Q4H PRN PRN For Pain Nitroglycerin (Nitroglycerin) 0.3 Mg Tab.subl 0.4 MG SL PRN For Chest Pain PMH CAD Hypertension Hyperlipidemia GERD BPH Surgical History CABG Total left knee stent Family History Patient denied family history of heart disease. Social History Hx Alcohol Use: No Hx Substance Use: No Smoking Status: Former Smoker Exam Vital Signs Vital Sign - Last Date Time Temp Pulse Resp B/P Pulse Ox O2 Delivery O2 Flow Rate FiO2 07/08/16 00:21 94 20 178/86 96 Room Air 07/07/16 22:58 2 07/07/16 22:24 36.9 Exam General: No acute distress, well-developed, well-nourished, appropriately interactive HEENT: Normocephalic, atraumatic. External ears without defect. Pupils equal, round, and reactive to light and accommodation. Anicteric sclerae, moist conjunctivae, and no lid lag. Oropharynx free of erythema and cobble stoning with moist mucosa. Neck: Supple with full range of motion. No jugular venous distension. No bruits. No lymphadenopathy or thyromegaly. Cardiovascular: Regular rate and rhythm with no murmurs, rubs, or gallops appreciated Pulmonary: Clear to auscultation bilaterally with no crackles, wheezes, or rhonchi. Normal respiratory effort with no use of accessory muscles. Abdomen: Bowel tones present. Soft, nontender, nondistended. No hepatosplenomegaly or masses appreciated. Extremities: No clubbing, cyanosis, edema, or lymphadenopathy appreciated. Skin: Normal temperature, turgor, and texture; no rash, ulcers, or subcutaneous nodules appreciated. Neurological: Cranial nerves grossly intact. Psychiatric: Normal mood and affect. Lab and Diagnostics Result Diagram: 07/07/16224407/07/162244 Assessment & Plan This is a 85 year old male with past medical history significant for CAD s/p CABG and multiple stents who presents with chest pressure that began this evening at 7:30 PM. At that time patient took 3 nitroglycerin tablets which did relieve the pain somewhat. He received additional nitroglycerin in the emergency department which also helped relieve the pressure. He was recently admitted to the hospital with similar chest pressure at that time cardiac catheterization was performed and due to heavily calcified coronary arteries the pest technician did not feel that the lesions were amenable to stents. It was recommended that conservative medical management proceed. Unstable angina, present on admission: Know history of multiple vessel coronary disease but complicated by calcified coronary arteries is on medical therapy only. -Dr. Terry the pest technician on-call was consulted. She recommended heparin drip only if INR is less than 2. -Nitroglycerin when necessary for chest pain. -Patient on telemetry. -Repeat troponin in a.m. Long Qt, presumed stable: -Qtc 498. -Avoid Qtc prolonging medications. Chronic kidney disease, stable: -Multiple elevated creatinines in the past. Creatinine stable at this point. Chronic normocytic anemia, stable: -Continue to monitor CBC. Hypertension, stable: -Continue home medications Hyperlipidemia, stable: -Continue statin. Med req: Patient's warfarin dose will need to be confirmed by day team. The rest of the medreq has been completed. Patient is admitted under observation status with expected length of stay less than 2 midnights due to severity of presenting symptoms, risk of adverse event, and complexity of treatment plan. DVT prophylaxis: Patient is therapeutic on warfarin Attending Statement The patient was seen and examined together with Dr. Rodgers on 07/07 and I agree with the history, exam and plan as outlined in the note above. Burt Rodgers DO July 08, 2016 00:51 Matthew Velez MD July 08, 2016 02:54
[2016-07-08] MEDS ORDERED: Polyethylene Glycol (PEG) 17 Gm Powder PO PRN (01:00)
[2016-07-08] MEDS ORDERED: Alum-Mag Hydrox-Simeth 30 mL Suspension PO PRN ×2 (01:00)
[2016-07-08] MEDS ORDERED: Ondansetron 2 mg/mL 2 mL Inj IVPUSH PRN ×2 (01:00)
[2016-07-08] MEDS ORDERED: DOCU240C41 PO (01:30)
[2016-07-08] MEDS ORDERED: FERR325C PO (01:30)
[2016-07-08 01:59] LABS: APPEARANCE,URINE CLEAR (CLEAR,HAZY); COLOR,URINE STRAW (YELLOW); OCCULT BLOOD,URINE TRACE (NEGATIVE); UROBILINOGEN,URINE NORMAL (NORMAL)
[2016-07-08 06:41] LABS: BASOPHILS % (AUTO) 0.6 % (0-3); EOSINOPHILS % (AUTO) 6.9 % (0-5); MONOCYTES % (AUTO) 12.9 % (4-12); Mean Corpuscular Hemoglobin 31.5 pg (27.0-35.0); Mean Corpuscular Volume 98.6 fL (81-100); NEUTROPHILS % (AUTO) 48.5 % (40-74); Platelet Count 110 bil/L (150-400)
--- NOTE | 2016-07-08 07:29 | DRSVH ---
PROCEDURE: X-RAY CHEST ONE VIEW, PORTABLE ([id number]) INDICATIONS: CHEST PAIN TECHNIQUE: One view of the chest was acquired. COMPARISON: [facility], CR, XR CHEST 1VW (PORTABLE), 06/02/2016, 1:59. [facility], CR, CHEST 2 VIEW, 03/05/2016, 14:12. FINDINGS: Surgical changes and devices: Median sternotomy. Lungs and pleura: No pleural effusions or pneumothorax. Lungs are clear. Mediastinum: Mediastinal contours appear normal. Heart size is enlarged. Bones and chest wall: No suspicious bony lesions. Overlying soft tissues appear unremarkable. IMPRESSION: No acute process. Dictated by: Robin Mcdaniels M.D. on 07/08/2016 at 7:27 Approved by: Robin Mcdaniels M.D. on 07/08/2016 at 7:28
[2016-07-08] MEDS ORDERED: Isosorbide Mononitrate 60 mg ER24 Tablet PO SCH (08:30)
[2016-07-08] MEDS: HYDROcodone-APAP 5-325 mg Tablet PO PRN (12:23)
--- NOTE | 2016-07-08 15:09 | PCM.PNMED ---
Subjective Date of Service July 08, 2016 Subjective Stable overnight into this morning. Chest pain remaining in remission. NO acute complaints today, but hasn't pushed himself yet. Has yet to get out of bed. Exam Vital Signs Vital Sign - Last Date Time Temp Pulse Resp B/P Pulse Ox O2 Delivery O2 Flow Rate FiO2 07/08/16 12:08 36.5 59 16 154/71 99 Room Air 07/07/16 22:58 2 Intake and Output 07/07/16 07/07/16 07/08/16 Cumulative From/Thru 15:00 23:00 07:00 07/07/16 22:16 - 07/08/16 05:27 Intake Total 100 ml 100 ml Output Total 400 ml 400 ml Balance -300 ml -300 ml Intake Oral 100 ml 100 ml Output Urine Total 400 ml 400 ml General: Alert, Oriented X3, Cooperative, No Acute Distress Chest & Lungs: Clear to auscultation & percussion Cardiovascular: Regular Rate/Rhythm, Other (boarderline bradycardia) Extremities: No cyanosis/clubbing/edma bilat Neurological: Grossly Neurologically Intact IVs and Medications Medications Reviewed: Medications were reviewed in detail Lab and Diagnostics Result Diagram: 07/08/1660407/08/16604 Assessment & Plan This is a 85 year old male with past medical history significant for CAD s/p CABG and multiple stents who presents with chest pressure that began this evening at 7:30 PM. At that time patient took 3 nitroglycerin tablets which did relieve the pain somewhat. He received additional nitroglycerin in the emergency department which also helped relieve the pressure. He was recently admitted to the hospital with similar chest pressure at that time cardiac catheterization was performed and due to heavily calcified coronary arteries the fish hatchery worker did not feel that the lesions were amenable to stents. It was recommended that conservative medical management proceed. 1. Unstable angina, present on admission: Know history of multiple vessel coronary disease but complicated by calcified coronary arteries is on medical therapy only. -Dr. Terry the fish hatchery worker on-call was consulted. She recommended heparin drip only if INR is less than 2, which was not the case, so only warfarin continued - Face to face consult is still pending, case reviewed with Dr Terry this morning, who believes intervention very risky, likely supportive measures only to be offered. . -Nitroglycerin when necessary for chest pain. -Patient on telemetry. -Troponin values are upward trending. - Should intervention prove impossible or not prudent, palliative care consultation will be considered in AM for further discussion of goals of care. 2. Long Qt, presumed stable: -Qtc 498. -Avoid Qtc prolonging medications. 3. Chronic kidney disease, stable: -Multiple elevated creatinines in the past. Creatinine stable at this point. 4. Chronic normocytic anemia, stable: -Continue to monitor CBC. 5. Hypertension, stable: -Continue home medications 6. Hyperlipidemia, stable: -Continue statin. Pain Evaluation: Adequate Pain Control VTE Mechanical Devices: Intermittant Pneumatic CD Resuscitation Status: CPR: Attempt Resuscitation Time spent 30 minutes Arden Casas DO July 08, 2016 15:09
[2016-07-08] MEDS ORDERED: Heparin 5,000 Unit/mL Inj IVPUSH PRN (15:45)
[2016-07-08] MEDS ORDERED: Heparin 5,000 Unit/mL Inj IVPUSH ONE (15:45)
[2016-07-08] MEDS ORDERED: Heparin 25K Unit/500mL 0.45 NS 25,000 UNIT in IV Premix 1 EACH IV SCH (16:25)
[2016-07-08 18:52] LABS: INR 2.04 ratio
--- NOTE | 2016-07-08 19:24 | CONS ---
[address] [address] CONSULTATION REPORT PATIENT: SAE COUCH : 1930 MR#: [id number] ADMIT: 07/08/2016 JOB ID: [id number] DATE OF SERVICE: 07/08/2016 CHIEF COMPLAINT: Chest pain. HISTORY OF PRESENT ILLNESS: The patient is a delightful, 85-year-old man with coronary artery disease status post CABG. He is seen at the request of Dr. Casas for further evaluation of non-STEMI. Patient was brought to the emergency department due to chest pain that started after dinner, July 07, 2016. Pain was pressure-like in nature. He took three nitroglycerins over a 50 minute period which somewhat relieved his symptoms. He was given two additional nitroglycerin tablets by paramedics en route. This chest discomfort is consistent with his prior hospitalization for non-STEMI and right now he is pain-free. PAST MEDICAL HISTORY: 1. Coronary artery disease. Surgical anatomy is MESA to LAD, vein graft to D1 and vein graft to ramus intermedius. Surgery was performed in 1986. 2. Intervention of the vein graft to D1 with drug-eluting stent in and . 3. History of DVT in 2007 and 2012 on chronic anticoagulation as an outpatient. 4. Chronic kidney disease-stage 3 with calculated glomerular filtration rate of 37 mL/minute. 5. Aortic stenosis-moderate. Most recent echocardiogram June 02, 2016 demonstrated EF 55%. The peak velocity across the aortic valve is 3m/sec with a mean gradient of 24 mmHg. 6. Hypertension-controlled. 7. Hyperlipidemia-controlled on simvastatin. 8. Benign prostatic hypertrophy. 9. Reflux. PAST SURGICAL HISTORY: 1. Coronary artery bypass graft as outlined above in 1986. 1. Total knee arthroplasty. FAMILY HISTORY: No heart disease. SOCIAL HISTORY: The patient is a former smoker. He is accompanied by his , Alberto. He says he has been under a lot of stress because his son was recently diagnosed with kidney failure. HOME MEDICATIONS: 1. Plavix 37.5 mg daily. 2. Zocor 40 mg daily. 3. Metoprolol tartrate 25 mg twice a day. 4. Isosorbide mononitrate 60 mg daily. 5. Lisinopril 10 mg daily. 6. Alpha Zosyn 10 mg daily. 7. Finasteride 5 mg daily. 8. Allopurinol 150 mg daily. 9. Warfarin as instructed by pro time nursing. 10. Various etga-vqr-bgqrncv remedies including multivitamin, oral bowel regimen and Zantac. CURRENT MEDICATIONS IN THE HOSPITAL: 1. Lisinopril 10 mg daily. 2. Plavix 37.5 mg daily. 3. Finasteride 5 mg every evening. 4. Allopurinol 150 mg daily. 5. Isosorbide mononitrate 60 mg daily. 6. Metoprolol tartrate 25 mg twice a day. 7. Lipitor 20 mg daily. 8. Alpha Zosyn 10 mg daily. REVIEW OF SYSTEMS: The patient denies bright red blood per rectum or hematuria. He reports chest discomfort that started at rest after dinner. Otherwise 10 point review of systems is negative. PHYSICAL EXAMINATION: Vital signs: Temperature 36.5, blood pressure 124/78 up to 178/86, pulse 58 up to and in 94 beats per minute. He is satting 99% on room air. Very pleasant man, no apparent distress. Eyes: No scleral icterus. Neck is supple. No carotid bruits. Heart: Normal S1, S2. There is a 2/6 systolic ejection murmur at right upper sternal border. Lungs are clear to auscultation bilaterally but, interestingly enough, just intermittently I can hear him wheezing when I observed the patient, but I do not hear it on lung exam. Abdomen is soft, positive bowel sounds. No hepatosplenomegaly. Extremities: Warm, well perfused. No clubbing, cyanosis, or edema. Skin: No rashes or lesions. There are multiple ecchymoses present. LABORATORIES: Reviewed. He is anemic. His hematocrit is 28%. Platelet count is low at 110. White count is 5. Creatinine is 1.9. His troponin T during this hospitalization was most recently 0.2 and it has not peaked yet. During prior hospitalization, it peaked at 0.19. Most recent lipids obtained June 02 showed total cholesterol 141, triglycerides 64, HDL 46, LDL 82. Transaminases were normal as of July 08, 2016. Most recent INR is 2 as of July 07, 2016. DIAGNOSTIC STUDIES: Most recent chest x-ray July 07, 2016 demonstrated no acute process. Median sternotomy. No pleural effusions. Lungs are clear. Most recent EKG July 07, 2016 demonstrated sinus rhythm, left bundle branch-block and occasional PACs. Prior EKG performed during his hospitalization, June 02, 2016, demonstrated that old left bundle-branch block. Most recent cardiac catheterization performed by Dr. Bustos, June 06, 2016, showed heavily calcified coronary arteries. He has occluded LAD in its mid portion just distal to the first septal payroll manager, 70% distal circumflex stenosis, codominant right coronary artery with 95% mid RCA stenosis. MESA to LAD is patent. The vein graft to ramus is occluded. The vein graft to first diagonal is patent. So, medical management was recommended because coronary arteries are heavily calcified. I personally reviewed the cardiac catheterization report. I would like to add on personal review, left main is a short disease with diffuse severe calcification and extremely tight stenosis in the mid and distal portion of the left main. I would like to also add that the graft to diagonal vessel is good, but the target is extremely diseased. I would also like to add that the right coronary artery is an extremely diffusely diseased vessel. The review of his films suggests that this is a fairly end-stage patient, unfortunately. ASSESSMENT AND PLAN: In summary, this is an elderly gentleman with a non-ST elevation myocardial infarction, old left bundle-branch block, severe coronary artery disease, cardiac catheterization a month ago and not a good candidate for any kind of intervention. Our goal was to work on his antianginal medications and, in particular, work on his hypertension and try to reduce his myocardial oxygen demand as much as possible. To that end, I recommend continuing his metoprolol tartrate containing his isosorbide mononitrate and add amlodipine 5 mg daily. Start the 1st dose today. If needed, we can dial back on lisinopril because we really need to titrate up the antianginals. I also would like to have a conversation about code status with this patient. I think if he does have cardiac arrest, he is very unlikely to return to his baseline level of function and we need to really discuss with him his prognosis and see if he wants to be DO NOT RESUSCITATE/DO NOT INTUBATE. I am noticing that he is quite anemic. His hematocrit is 28%. This is a chronic condition for this patient, but it seems to have gotten worse since last admission. I think if anemia gets worse, we will have a low threshold to stop his Plavix. In terms of anticoagulation, his last INR was 2 yesterday. I think we should recheck it today, and only heparin drip if INR is less than 2, otherwise, hold off. Thank you very much for the opportunity to evaluate him. SAAD
[2016-07-09] VITALS (9 sets, daily range): BP systolic 117–150; BP diastolic 53–72; PULSE 61–89; RESP 16–19; O2SAT 94–98
[2016-07-09] MEDS: HYDROcodone-APAP 5-325 mg Tablet PO PRN ×2 (01:44→05:25)
[2016-07-09 06:59] LABS: BASOPHILS % (AUTO) 0.7 % (0-3); EOSINOPHILS % (AUTO) 7.1 % (0-5); MONOCYTES % (AUTO) 13.2 % (4-12); Mean Corpuscular Hemoglobin 30.7 pg (27.0-35.0); Mean Corpuscular Volume 98.6 fL (81-100); NEUTROPHILS % (AUTO) 55.2 % (40-74); Platelet Count 141 bil/L (150-400)
[2016-07-09] MEDS ORDERED: MeTOProlol XL 25 mg ER24 Tablet PO ONE (08:40)
[2016-07-09] MEDS: Isosorbide Mononitrate 30 mg ER24 Tablet PO SCH (09:57)
[2016-07-09] MEDS: Isosorbide Mononitrate 60 mg ER24 Tablet PO SCH (09:58)
--- NOTE | 2016-07-09 13:00 | DRSVH ---
[facility] [address] [place] [address] Echocardiogram Report Name: SAE COUCH Study Date: 07/09/2016 Height: 68 in Hospital Exam Location: [facility] Weight: 190 lb Gender: Male BSA: 2.0 m2 : 1930 Age: 85 yrs BP: 145/72 mmHg Reason For Study: Angina History: CABG, CAD Ordering Physician: HOSPITALIST [facility] Performed By: Jose De Jesus Barreto Referring Physician: Abby Terry Interpretation Summary The left ventricle is normal in size. The ejection fraction is estimated to be 45-50%. Septal motion is consistent with conduction abnormality. There is mild hypokinesis of the anteroseptum. Compared to the prior exam, left ventricular function is slightly decreased. The aortic valve is moderately calcified. Doppler measurements were not obtained. Procedure: A two-dimensional transthoracic echocardiogram with color flow and Doppler was performed in limited views only. The study quality was technically adequate. Comparison is made with the echocardiogram of 06/02/16. A contrast injection of Definity was performed to improve assessment of LV function. The heart rate ranged between 61-80 bpm during the study. Left Ventricle: The left ventricle is normal in size. Left ventricular wall thickness is mildly increased. The ejection fraction is estimated to be 45- 50%. Compared to the prior exam, left ventricular function is slightly decreased. Septal motion is consistent with conduction abnormality. There is mild hypokinesis of the anteroseptum. Mitral Valve: The mitral valve is normal in structure and function. There is mild mitral annular calcification. Aortic Valve: The aortic valve is trileaflet. The aortic valve is moderately calcified. Doppler measurements were not obtained. Tricuspid Valve: The tricuspid valve is normal in structure and function. Pericardium/ Pleura There is no pericardial effusion. There is no pleural effusion. MMode/2D Measurements & Calculations LVIDd LV liz. diameter/BSA (cm/m^2) LV sys. diameter/BSA (cm/m^2) : 5.0 cm LVIDs : 3.2 cm FS: 35.9 % EPSS : 0.5cm IVSd: 1.3 cm LVPWd : 1.2 cm Doppler Measurements & Calculations TR max dane: 210.2 cm/sec PA V2 mean: 66.3 cm/sec TR max P.7 mmHg PA V2 max: 117.3 cm/sec PA mean P.3 mmHg Electronically signed by: Wan Dennis on Reading Physician:07/09/2016 01:00 PM
--- NOTE | 2016-07-09 13:06 | PCM.PNCARD ---
Subjective Date of service July 09, 2016 Chief Complaint Angina - end stage CAD Constitutional: Denies: Fever Eyes: Denies: Blurred Vision, Conjunctive Inflammation Cardiovascular: Reports: Chest Pain, Denies: Irregular Heart Rate Respiratory: Denies: Cough, Cough with bloody sputum Gastrointestinal: Denies: Abdominal Pain, Blood in stool (red) Musculoskeletal: Reports: Shoulder Pain Skin: Denies: Blisters, Dry or Flakiness Neurological: Denies: Change in LOC, Confusion, Dizziness Endocrine: Reports: Blood Glucose Review Exam Vital Signs Vital Sign - Last Date Time Temp Pulse Resp B/P Pulse Ox O2 Delivery O2 Flow Rate FiO2 07/09/16 09:28 67 07/09/16 09:20 36.9 18 123/69 96 Room Air 07/07/16 22:58 2 Intake and Output 07/08/16 07/08/16 07/09/16 Cumulative From/Thru 15:00 23:00 07:00 07/07/16 22:16 - 07/09/16 04:56 Intake Total 875 ml 750 ml 450 ml 2175 ml Output Total 400 ml 400 ml 1100 ml 2300 ml Balance 475 ml 350 ml -650 ml -125 ml Intake Oral 875 ml 750 ml 450 ml 2175 ml Output Urine Total 400 ml 400 ml 1100 ml 2300 ml General: Pleasant Cooperative Skin: Warm & dry to touch Eye: EOMS intact Chest: Clear auscultation w/o rales/wheeze Cardiac: Regular rhythm Abdomen: Soft, non-distended, non-tender Extremities: Warm w/o deformities,erythema noted Neurological: Alert & oriented Lab and Diagnostics Labs CBC Test 07/09/16 06:30 07/09/16 08:35 White Blood Count 5.9th/mm3 (3.8-10.1) Red Blood Count 2.96mil/mm3 (4.40-5.80) Mean Corpuscular Volume 98.6fL (81-100) Mean Corpuscular Hemoglobin 30.7pg (27.0-35.0) Mean Corpuscular Hemoglobin Concent 31.2% (32.0-37.0) Red Cell Distribution Width 13.9% (12.3-15.4) Platelet Count 141bil/L (150-400) Neutrophils (%) (Auto) 55.2% (40-74) Lymphocytes (%) (Auto) 23.5% (14-46) Monocytes (%) (Auto) 13.2% (4-12) Eosinophils (%) (Auto) 7.1% (0-5) Basophils (%) (Auto) 0.7% (0-3) Hemoglobin 9.9g/dL (13.8-17.2) Hematocrit 31.2% (41.0-50.0) CMP Test 07/07/16 22:45 07/08/16 06:05 07/09/16 06:30 Magnesium Level 1.6mg/dL Hold Thomas Top Tube Received Total Bilirubin 0.2mg/dL Aspartate Amino Transf (AST/SGOT) 21U/L Alanine Aminotransferase (ALT/SGPT) 8U/L Alkaline Phosphatase 41U/L Total Protein 5.1g/dL Albumin 3.1g/dL Sodium Level 141mEq/L Potassium Level 4.6mEq/L Chloride Level 108mEq/L Carbon Dioxide Level 21mmol/L Blood Urea Nitrogen 31mg/dL Creatinine 1.49mg/dL Estimat Glomerular Filtration Rate 47mL/min Glucose Level 90mg/dL Calcium Level 8.7mg/dL Troponin T 0.173ug/L Result Diagram: 07/09/16 0835 07/09/16 0630 Assessment & Plan Problems: (1) NSTEMI (non-ST elevated myocardial infarction) Plan: Patient is not a great candidate for PCI based on coronary anatomy, plus he has additional risk factors that would increase his risk for complications perioperatively. I will recommend to defer heart catheterization for now and continue to be more aggressive with his antianginal meds. I have increased his metoprolol and started him on Imdur. He was already started on amlodipine as well. He is already on Plavix low dose and warfarin. I will like for him to walk this afternoon and see how he does on these new changes with his meds. I believe the patient will need to stay one more night, probably two more nights to see how he responds to these changes. Patient agrees the plan. He has an appt with Dr. Jordan Roldan at [facility] on Saturday but he might miss this appointment if he stays for 2 more nights. His echo is pending as well and I will follow up on that study. Unless he has significant change with his LVEF, I do not believe we will make any further changes with his current medications. Status: Acute ICD Code: I21.4 (2) Angina pectoris Status: Chronic ICD Code: I20.9 Pain Evaluation: Adequate Pain Control VTE Mechanical Devices: Intermittant Pneumatic CD Resuscitation Status: CPR: Attempt Resuscitation Stroke Anti-thrombotic Day 2 Antithrombotic Contraindicate: On Warfarin therapy, Surgical contraindication copies to: Jordan Roldan MD, Oscar J MD July 09, 2016 13:06
--- NOTE | 2016-07-09 16:29 | PCM.PNMED ---
Subjective Date of Service July 09, 2016 Subjective Patient was seen and examined at bedside today. Patient denies any shortness of breath, nausea, vomiting, diarrhea. Patient states that his chest pain has improved. Overnight events: None Exam Vital Signs Vital Sign - Last Date Time Temp Pulse Resp B/P Pulse Ox O2 Delivery O2 Flow Rate FiO2 07/09/16 09:28 67 07/09/16 09:20 36.9 18 123/69 96 Room Air 07/07/16 22:58 2 Intake and Output 07/08/16 07/08/16 07/09/16 Cumulative From/Thru 15:00 23:00 07:00 07/07/16 22:16 - 07/09/16 04:56 Intake Total 875 ml 750 ml 450 ml 2175 ml Output Total 400 ml 400 ml 1100 ml 2300 ml Balance 475 ml 350 ml -650 ml -125 ml Intake Oral 875 ml 750 ml 450 ml 2175 ml Output Urine Total 400 ml 400 ml 1100 ml 2300 ml Exam Physical Exam: GEN: Patient was awake, alert, responding appropriately to questions HEENT: Pupils equal round and reactive to light, extraocular eye muscles intact , Neck soft supple, trachea midline, nomocephalic/atraumatic CV: Distant heart sounds Respiratory: CTAB, no wheezes, rales, rhonchi GI: +bowel sounds x4, soft, compressible, nontender to palpation EXT: no clubbing, cyanosis, edema Neuro: Cranial nerves II-XII grossly intact Psych: mood and affect were appropriate IVs and Medications Medications Reviewed: Medications were reviewed in detail Lab and Diagnostics Result Diagram: 07/09/16 0835 07/09/16 0630 Assessment & Plan 85 year old male with past medical history significant for CAD s/p CABG and multiple stents who presents with the complaint of chest pressure. Unstable angina, present on admission: Know history of multiple vessel coronary disease but complicated by calcified coronary arteries is on medical therapy only. -Continue warfarin as per recommendation by (Dr. Terry cardiology) -Continue telemetry -Dr. Meade (cardiology) was consulted and decided the patient should not go for cardiac cath but should have his medications optimized first with medical management -Troponins trending down -Increase metoprolol 50mg BID -Imdur started 60 mg daily -Continue lisinopril -Continue amlodipine -Continue Plavix -Echo pending Long Qt, presumed stable: -Qtc 498. -Avoid Qtc prolonging medications. Chronic kidney disease, stable: -Multiple elevated creatinines in the past. Creatinine stable at this point. Chronic normocytic anemia, stable: -Continue to monitor CBC. Hypertension, stable: -Continue home medications Hyperlipidemia, stable: -Continue statin. Disposition: The case was discussed extensively with Dr. Meade who feels that the patient should be optimized medically first before attempting any catheterization as patient is a complex patient. We will continue to monitor the patient and optimize his medications. Patient should be ready for discharge in the next 1-2 days. VTE Mechanical Devices: Intermittant Pneumatic CD Resuscitation Status: CPR: Attempt Resuscitation Nila Joaquin DO July 09, 2016 16:29
[2016-07-09] MEDS: MeTOProlol XL 50 mg ER24 Tablet PO SCH (21:18)
[2016-07-10 01:30] VITALS: BP 112/57; PULSE 62; RESP 16; O2SAT 95
[2016-07-10 05:44] VITALS: BP 115/65; PULSE 70; RESP 17; O2SAT 96
[2016-07-10 06:50] LABS: Mean Corpuscular Hemoglobin 31.1 pg (27.0-35.0); Mean Corpuscular Volume 98.9 fL (81-100)
[2016-07-10 08:33] VITALS: BP 152/74
[2016-07-10] MEDS: Isosorbide Mononitrate 30 mg ER24 Tablet PO SCH (08:42)
[2016-07-10] MEDS: Isosorbide Mononitrate 60 mg ER24 Tablet PO SCH (08:42)
[2016-07-10] MEDS: MeTOProlol XL 50 mg ER24 Tablet PO SCH (09:52)
[2016-07-10 10:06] VITALS: BP 116/56; PULSE 60; RESP 16; O2SAT 99
[2016-07-10 10:26] VITALS: PULSE 61
[2016-07-10] MEDS ORDERED: ISOSORBIDE MN PO (11:42)
[2016-07-10] MEDS ORDERED: METO-272 PO (11:42)
[2016-07-10] MEDS ORDERED: AMLO5TAB2 PO (11:42)
--- NOTE | 2016-07-10 12:07 | PCM.DIMED ---
Discharge Instructions Date of Service July 10, 2016 Dates of Hospitalization July 08, 2016 at 00:06 Discharge Diagnosis Discharge Diagnosis Unstable angina Long QT (stable) CKD (stable) Chronic normocytic anemia (stable) Hypertension (stable) Hyperlipidemia (stable) Medication Instructions Please make note that there were changes made to your medication: Imdur which is now 90 mg daily Metoprolol 50 mg twice a day Amlodipine 5 mg daily Diet Heart Healthy Activity No restrictions (gradually return to normal daily activities) Call your provider Fever or Chills, Bleeding, Chest pain, Weakness (unilateral) Patient Instructions Provider: Bayron Kelly MD Follow-up in: 1 week (please keep your appointment with your power plant mechanic tomorrow) Nila Joaquin DO July 10, 2016 12:07
--- NOTE | 2016-07-10 12:10 | PCM.DC.MED ---
Discharge Summary Date of Service July 10, 2016 Dates of Hospitalization Date of Hospital Admission July 08, 2016 at 00:06 Date of Discharge: July 10, 2016 Providers: Admitting Physician: Matthew Velez MD Primary Care Physician: Bayron Kelly MD Attending Physician: Matthew Velez MD Diagnosis at Time of Discharge Diagnosis at Time of Discharge Unstable angina Long QT (stable) CKD (stable) Chronic normocytic anemia (stable) Hypertension (stable) Hyperlipidemia (stable) Brief History This is a 85-year-old male with past medical history significant for coronary artery disease status post CABG and multiple stents, hypertension, and hyperlipidemia who presents today with chest pressure. The patient states that the chest pressure began after dinner around 7:30 PM this evening. He took 3 nitroglycerin over approximately 15 minutes which did help his symptoms somewhat. By the time he reached the emergency department his pain had mostly resolved. The pain is described as pressure and substernal. He states it is the same pain he has had with previous heart attacks. He denies any shortness of breath, fevers, nausea, vomiting, diarrhea, diaphoresis, numbness or tingling extremities. The patient's most recent hospitalization was on 06/02/2016 for chest pressure. Echocardiogram at that time showed EF of 55%, moderate aortic stenosis, moderate mitral regurgitation. He had a cardiac catheterization completed which showed heavily calcified coronary arteries, occluded left anterior descending artery with patent left internal mammary artery graft, occluded ramus with occluded saphenous vein graft to the ramus, 60-70% stenosis of the distal circumflex artery, severe 95% stenosis of the mid right coronary artery. It was noted that percutaneous intervention was not suitable due to the heavily calcified arteries. Recommendation was for conservative medical management. In the emergency department vitals were: temperature 36.9 Celsius, pulse 86, respiratory rate 21, blood pressure 144/72, satting at 98% on 2 L by nasal cannula. Initial laboratory values: WBC 6.9, hemoglobin 9.3, hematocrit 29.2, platelets 136. BUN 39, creatinine 1.69, calcium 8.2, albumin 3.2, troponin 0.060. Patient has had multiple elevated troponins the past. Patient has also had multiple elevated creatinines in the past. In the emergency departments the patient was provided with isosorbide mononitrate and Nitrostat with continued relief of pain. Hospital Course 85 year old male with past medical history significant for CAD s/p CABG and multiple stents who presents with the complaint of chest pressure. The patient complained of chest pain and was admitted for angina. Cardiology was consulted and felt that the patient should not have a cardiac cath but have his medications increased for better medical management. The patient's metoprolol was increased to 50 mg twice a day the patient was started on Imdur 90 mg daily. The patient seemed to be responding well to treatment and had a decrease in pain and seems to be currently stable. If the patient should fail maximization of medical management then a catheterization should be considered. Patient stated that he understood and he was following up with his primary care/fine artist tomorrow. See below for full hospital course: Unstable angina, present on admission: Know history of multiple vessel coronary disease but complicated by calcified coronary arteries is on medical therapy only. -Continue warfarin as per recommendation by (Dr. Terry cardiology) -Continue telemetry -Dr. Meade (cardiology) was consulted and decided the patient should not go for cardiac cath but should have his medications optimized first with medical management -Troponins trending down -Increase metoprolol 50mg BID -Imdur started 90 mg daily -Continue lisinopril -Continue amlodipine -Continue Plavix -Echo pending Long Qt, presumed stable: -Qtc 498. -Avoid Qtc prolonging medications. Chronic kidney disease, stable: -Multiple elevated creatinines in the past. Creatinine stable at this point. Chronic normocytic anemia, stable: -Continue to monitor CBC. Hypertension, stable: -Continue home medications Hyperlipidemia, stable: -Continue statin. Disposition: The case was discussed extensively with Dr. Meade who feels that the patient should be optimized medically first before attempting any catheterization as patient is a complex patient. We will continue to monitor the patient and optimize his medications. Patient should be ready for discharge in the next 1-2 days. Exam Vital Signs (Last) Date Time Temp Pulse Resp B/P Pulse Ox O2 Delivery O2 Flow Rate FiO2 07/10/16 10:26 61 07/10/16 10:06 36.7 16 116/56 99 Room Air 07/07/16 22:58 2 Exam Physical Exam: GEN: Patient was awake, alert, responding appropriately to questions HEENT: Pupils equal round and reactive to light, extraocular eye muscles intact , Neck soft supple, trachea midline, nomocephalic/atraumatic CV: +S1/S2, regular rate and rhythm, systolic murmurs auscultated Respiratory: CTAB, no wheezes, rales, rhonchi GI: +bowel sounds x4, soft, compressible, nontender to palpation EXT: no clubbing, cyanosis, edema Neuro: Cranial nerves II-XII grossly intact Psych: mood and affect were appropriate Test 07/07/16 22:45 07/08/16 00:15 07/08/16 17:32 07/09/16 06:30 Hold Thomas Top Tube Received (Received) Urine Color Straw (YELLOW) Urine Appearance Clear (CLEAR,HAZY) Urine pH 5.0 (5.0-8.0) Urine Specific [place] 1.010 (1.003-1.035) Urine Protein Tracemg/dL (NEG,TRACE) Urine Glucose (UA) Negativemg/dL (NEGATIVE) Urine Ketones Negativemg/dL (NEGATIVE) Urine Occult Blood Trace (NEGATIVE) Urine Nitrite Negative (NEGATIVE) Urine Bilirubin Negative (NEGATIVE) Urine Urobilinogen Normalmg/dL (NORMAL) Urine Leukocyte Esterase Negative (NEGATIVE) Urine RBC 0-2/hpf (0-2) Urine WBC 0-5/hpf (0-5) Urine Epithelial Cells Occasional/hpf (NONE-MOD) Urine Crystals None seen (NONE SEEN) Urine Bacteria None/hpf (NONE-FEW) Urine Hyaline Casts None/lpf (NONE) Urine Granular Casts None seen (NONE SEEN) Urine Waxy Casts None seen (NONE SEEN) Urine Red Blood Cell Casts None seen (NONE SEEN) Urine White Blood Cell Casts None seen (NONE SEEN) Urine Mucus None seen (None Seen) Urine Trichomonas None seen (NONE SEEN) Urine Yeast None (NONE SEEN) Urine Culture Reflexed Not indicated Hold Urine Received (Received) Prothrombin Time 22.2sec (8.1-12.5) Prothromb Time International Ratio 2.04ratio Activated Partial Thromboplast Time 35.2sec (22.8-33.0) Neutrophils (%) (Auto) 55.2% (40-74) Lymphocytes (%) (Auto) 23.5% (14-46) Monocytes (%) (Auto) 13.2% (4-12) Eosinophils (%) (Auto) 7.1% (0-5) Basophils (%) (Auto) 0.7% (0-3) Troponin T 0.173ug/L (0.0-0.011) Test 07/09/16 22:50 07/10/16 06:18 07/10/16 08:40 Magnesium Level 1.6mg/dL (1.6-2.6) White Blood Count 6.0th/mm3 (3.8-10.1) Red Blood Count 2.73mil/mm3 (4.40-5.80) Mean Corpuscular Volume 98.9fL (81-100) Mean Corpuscular Hemoglobin 31.1pg (27.0-35.0) Mean Corpuscular Hemoglobin Concent 31.5% (32.0-37.0) Red Cell Distribution Width 13.9% (12.3-15.4) Platelet Count 137bil/L (150-400) Sodium Level 141mEq/L (134-144) Potassium Level 4.8mEq/L (3.5-5.2) Chloride Level 108mEq/L (97-108) Carbon Dioxide Level 20mmol/L (18-29) Blood Urea Nitrogen 36mg/dL (8-27) Creatinine 1.76mg/dL (0.76-1.27) Estimat Glomerular Filtration Rate 39mL/min (>59) Glucose Level 87mg/dL (60-99) Calcium Level 8.6mg/dL (8.5-10.1) Total Bilirubin 0.4mg/dL (0.0-1.2) Aspartate Amino Transf (AST/SGOT) 19U/L (0-50) Alanine Aminotransferase (ALT/SGPT) 8U/L (0-44) Alkaline Phosphatase 41U/L (25-160) Total Protein 5.4g/dL (6.4-8.4) Albumin 3.2g/dL (3.4-5.0) Hemoglobin 9.3g/dL (13.8-17.2) Hematocrit 29.3% (41.0-50.0) Discharge Medications Discharge Medications ([isosorbide MN ER]) 90 MG PO DAILY Prescribed by: ANDREI QUEEN DO Alfuzosin ER (Alfuzosin ER) 10 Mg Tab.er.24h 10 MG PO DAILY (Reported) Allopurinol (Allopurinol) 300 Mg Tablet 150 MG PO DAILY (Reported) Amlodipine (Amlodipine) 5 Mg Tablet 5 MG PO DAILY Prescribed by: ANDREI QUEEN DO Clopidogrel Bisulfate (Plavix) 75 Mg Tablet 37.5 MG PO DAILY (Reported) Docusate Calcium (Stool Softener) 240 Mg Capsule 240 MG PO HS (Reported) Ferrous Sulfate (Iron) 325 Mg Capsule.er 325 MG PO QAM (Reported) Finasteride (Finasteride) 5 Mg Tablet 5 MG PO DAILY (Reported) Lisinopril (Zestril) 10 Mg Tablet 10 MG PO DAILY Prescribed by: NILESH DOVE DO Metoprolol Succinate ER (Metoprolol Succinate ER) 50 Mg Tab.er.24h 50 MG PO BID Prescribed by: ANDREI QUEEN DO Multivitamin/Iron/Folic Acid (Daily Vit Formula + Iron Tab) 18 Mg Iron-400 Mcg Tablet 1 EACH PO DAILY (Reported) [place]-3 Fatty Acids/Fish Oil ([place] 3 1,000 mg Softgel) 1 Each Capsule 1 EACH PO DAILY (Reported) Ranitidine (Zantac) 150 Mg Tablet 150 MG PO DAILY (Reported) Simvastatin (Zocor) 40 Mg Tablet 40 MG PO HS (Reported) Triamcinolone Acet (Triamcinolone Acetonide Cream) 4 Applic/Gm Cr 1 APPLIC TOP BID (Reported) As needed Acetaminophen (Acetaminophen) 325 Mg Tablet 500 MG PO Q4H PRN PRN For Pain ( Reported) Hydrocodone-Acetaminophen 5-300 mg (Hydrocodone-Acetaminophen 5-300 mg) 1 Each Tablet 1 TABLET PO Q4H PRN PRN For Pain (Reported) Nitroglycerin (Nitroglycerin) 0.3 Mg Tab.subl 0.4 MG SL PRN For Chest Pain ( Reported) Miscellaneous Medications Warfarin Sodium (Warfarin Sodium) 2.5 Mg Tablet 2.5 MG PO (Reported) Saturday,Saturday,Saturday Warfarin Sodium (Warfarin Sodium) 5 Mg Tablet 5 MG PO (Reported) Additional med instructions Please make note that there were changes made to your medication: Imdur which is now 90 mg daily Metoprolol 50 mg twice a day Amlodipine 5 mg daily Followup Plan Discharge Diet: Heart Healthy Discharge Activity: No restrictions (gradually return to normal daily activities) Provider: Bayron Kelly MD Follow-up in: 1 week (please keep your appointment with your fine artist tomorrow) Time spent Greater than 35 minutes copies to: Bayron Kelly MD, Precious L DO July 10, 2016 12:10
== END 2016-07-10 13:50 | disposition home or self-care (01) | DRG 303 ==
LOC: SED 22:03 → OBSVTOIN 07-08 00:06 → MPC 07-08 00:06 → MOC 07-08 12:00
PROVIDERS: ADMIT Hospitalist; ATTEND Hospitalist
DX: I25.110 Atherosclerotic heart disease of native coronary artery with unstable angina pectoris (principal); E78.5 Hyperlipidemia, unspecified; I10 Essential (primary) hypertension; D64.9 Anemia, unspecified; N40.0 Benign prostatic hyperplasia without lower urinary tract symptoms; Z87.891 Personal history of nicotine dependence; Z95.1 Presence of aortocoronary bypass graft; I25.2 Old myocardial infarction